=== PATIENT | male | born 1965 | race American Indian/Alaskan Native ===

== ENCOUNTER 2021-02-14 08:42 | Emergency (ER) | payer SELFPAY ==
[2021-02-14] MEDS ORDERED: ASPIRIN 325 MG TAB PO ONE (09:17)
--- NOTE | 2021-02-14 09:59 | XRay Report ---
CHEST 2 VIEWS 0935 INDICATION / CLINICAL INFORMATION: syncope COMPARISON: None available. FINDINGS: SUPPORT DEVICES: None. HEART / MEDIASTINUM: No significant abnormality. LUNGS / PLEURA: Mild chronic changes are noted. Patchy pneumonic type infiltrate is seen moderately i n the left upper lobe. Right lung field is clear. No pleural effusions are seen. No pneumothorax. ADDITIONAL FINDINGS: No significant additional findings. Signer Name: Toby Francois MD Signed: 02/14/2021 9:55 AM Workstation Name: [id number]
[2021-02-14 10:37] LABS: Alanine Aminotransferase 13 units/L (7-56); Albumin 4.2 g/dL (3.9-5); BUN/Creatinine Ratio 17; Blood Urea Nitrogen 22 mg/dL (9-20); Calcium 9.2 mg/dL (8.4-10.2); Hemolysis Index 12
[2021-02-14 10:45] LABS: Hematocrit 43.9 % (35.5-45.6); Hemoglobin 14.7 gm/dl (11.8-15.2); Mean Corpuscular HGB Conc 33 % (32-34); Mean Corpuscular Volume 97 fl (84-94); Platelet Count 185 K/mm3 (140-440); Red Blood Count 4.55 M/mm3 (3.65-5.03); Red Cell Distribution Width 14.4 % (13.2-15.2)
[2021-02-14 11:39] LABS: Total Cells Counted 100
[2021-02-14 11:40] LABS: Large Platelets Few; Platelet Estimate Consistent w Auto; RBC Morphology Normal
[2021-02-14 16:35] VITALS: BP 127/93
--- NOTE | 2021-02-14 17:26 | Electrocardiograph Report ---
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
--- NOTE | 2021-02-15 08:49 | History and Physical Report ---
History of Present Illness Date of examination: 02/15/21 History of present illness: The patient is a 55-year-old male present with a chief complaint of syncope. The patient states he has had 3 syncopal episodes and one near syncopal episode for the past 3 days. Patient states his first episode occurred 02/13/2021 while walking to the bathroom he states he felt dizzy, had chest pain with palpitations and then woke up on the floor. Patient states the following day the same thing occurred while walking to the bathroom. The third episode occurred yesterday morning the patient states he had stepped up onto a bus and was about to pay when he felt dizzy and woke up on the ground surrounded by paramedics. It appears the patient came to the hospital had labs and x-ray performed the left before being evaluated by physician. Patient states last night he began to feel lightheaded so he sat down and the feeling resolved. Patient denies shortness of breath or cough. Patient denies history of fever. Patient denies nausea vomiting or diarrhea. Patient states he was not vaccinated against Covid. Patient states he is never had a cardiac catheterization Past medical history: Hypertension, bipolar disorder Past surgical history: History of wrist surgery and status post trach Family History: No significant history of heart disease, cancer or stroke Social History: Current Every Day Smoker (1 pack/day) Review of System: Constitutional: no fever, no chills, no weight loss Ears, eyes, nose, mouth and throat: no nasal congestion, no nasal discharge, no sinus pressure, no vision change, no red eye. Neck: No neck pain or rigidity. Cardiovascular: No chest pain, no orthopnea, no palpitations, no leg swelling Respiratory: No shortness of breath, no cough, no congestion, no wheezing Gastrointestinal: no abdominal pain, no nausea, no vomiting Genitourinary : no dysuria, no hematuria Musculoskeletal: no joint swelling or muscle ache Integumentary: no rash, no pruritis Neurological: no parathesias, no numbness, no tingling Endocrine: no cold or heat intolerance, no polyuria or polydipsia Hematologic/Lymphatic: no easy bruising, no easy bleeding, no gland swelling Allergic/Immunologic: no urticaria, no angioedema. Medications and Allergies Allergies Allergy/AdvReac Type Severity Reaction Status Date / Time No Known Allergies Allergy Verified 02/14/21 09:17 Active Meds: Active Medications Acetaminophen (Acetaminophen 325 Mg Tab) 650 mg PO Q4H PRN PRN Reason: Pain MILD(1-3)/Fever >100.5/LEIGH Docusate Sodium (Docusate Sodium 100 Mg Cap) 100 mg PO BID MELISSA Famotidine (Famotidine 20 Mg Tab) 20 mg PO BID MELISSA Ondansetron HCl (Ondansetron 4 Mg/2 Ml Inj) 4 mg IV Q8H PRN PRN Reason: Nausea And Vomiting Sodium Chloride (Sodium Chloride 0.9% 10 Ml Flush Syringe) 10 ml IV BID MELISSA Sodium Chloride (Sodium Chloride 0.9% 10 Ml Flush Syringe) 10 ml IV PRN PRN PRN Reason: LINE FLUSH Exam - Constitutional Vitals: Temp Pulse Resp BP Pulse Ox 97.9 F 85 18 127/93 98 02/14/21 16:34 02/14/21 16:34 02/14/21 16:34 02/14/21 16:34 02/14/21 16:34 HEART Score - HEART Score Troponin: Troponin T < 0.010 ng/mL (0.00-0.029) 02/14/21 09:37 Results - Labs CBC & Chem 7: 02/14/21 09:37 02/14/21 09:37 Labs: Abnormal lab results 02/14/21 02/14/21 Range/Units 09:37 09:37 WBC 3.8 L (4.5-11.0) K/mm3 MCV 97 H (84-94) fl Monocytes % (Manual) 16.0 H (0.0-7.3) % Lymphocytes # (Manual) 0.7 L (1.2-5.4) K/mm3 Sodium 134 L (137-145) mmol/L BUN 22 H (9-20) mg/dL Glucose 109 H (75-100) mg/dL Assessment and Plan Recurrent syncope Ongoing tobacco abuse Hypertension Bipolar disorder
[2021-02-15] MEDS ORDERED: ONDANSETRON 4 MG/2 ML INJ IV PRN (09:30)
[2021-02-15] MEDS ORDERED: DOCUSATE SODIUM 100 MG CAP PO SCH (10:00)
[2021-02-15] MEDS ORDERED: ACETAMINOPHEN 325 MG TAB PO PRN (10:30)
[2021-02-15] MEDS ORDERED: FAMOTIDINE 20 MG TAB PO SCH (11:00)
== END 2021-02-15 12:27 | disposition left against medical advice (07) ==
LOC: ED 08:42
DX: R55 Syncope and collapse (principal); Z53.21 Procedure and treatment not carried out due to patient leaving prior to being seen by health care provider
CPT/HCPCS: 36415; 71046; 80053; 84484; 85007; 85025; 93005

== ENCOUNTER 2021-02-15 00:09 | Inpatient (IN) | payer SELFPAY ==
[2021-02-15] MEDS ORDERED: ONDANSETRON 4 MG ODT TAB PO ONE (01:27)
[2021-02-15] MEDS ORDERED: ACETAMINOPHEN 500 MG TAB PO ONE (01:27)
[2021-02-15 02:19] LABS: Mean Corpuscular HGB Conc 36 % (32-34); Mean Corpuscular Volume 95 fl (84-94); Platelet Count 182 K/mm3 (140-440); Red Blood Count 4.41 M/mm3 (3.65-5.03)
[2021-02-15 02:21] LABS: Alanine Aminotransferase 13 units/L (7-56); Albumin 4.4 g/dL (3.9-5); BUN/Creatinine Ratio 19; Blood Urea Nitrogen 23 mg/dL (9-20); Calcium 8.9 mg/dL (8.4-10.2); Hemolysis Index 8
[2021-02-15] MEDS ORDERED: AZITHROMYCIN/NS 500 MG/250 ML 500 MG/250 ML BAG IV ONE (04:32)
[2021-02-15] MEDS ORDERED: cefTRIAXone/NS 1 GM/50 ML 1 GM/50 ML BAG IV ONE (04:32)
--- NOTE | 2021-02-15 04:41 | Emergency Department Report ---
HPI - HPI HPI: Room 39 --> 34 The patient is a 55-year-old male present with a chief complaint of syncope. The patient states he has had 3 syncopal episodes and one near syncopal episode for the past 3 days. Patient states his first episode occurred 02/13/2021 while walking to the bathroom he states he felt dizzy, had chest pain with palpitations and then woke up on the floor. Patient states the following day th e same thing occurred while walking to the bathroom. The third episode occurred yesterday morning the patient states he had stepped up onto a bus and was about to pay when he felt dizzy and woke up on the ground surrounded by paramedics. It appears the patient came to the hospital had labs and x-ray performed the left before being evaluated by physician. Patient states last night he began to feel lightheaded so he sat down and the feeling resolved. Patient denies shortness of breath or cough. Patient denies history of fever. Patient denies nausea vomiting or diarrhea. Patient states he was not vaccinated against Covid. Patient states he is never had a cardiac catheterization <JODY SWANN - Last Filed: 02/15/21 05:42> <CINTHYA FERRARI - Last Filed: 02/15/21 08:28> - General Chief Complaint: Syncope Time Seen by Provider: 02/15/21 04:18 ED Past Medical Hx - Past Medical History Previous Medical History?: Yes Hx Hypertension: Yes Hx Psychiatric Treatment: Yes (Bipolar) - Surgical History Past Surgical History?: Yes Additional Surgical History: Wrist,trach - Family History Family history: no significant - Social History Smoking Status: Current Every Day Smoker (1 pack/day) Substance Use Type: None (Denies illicit drug use) <JODY SWANN - Last Filed: 02/15/21 05:42> ED Review of Systems ROS: Stated complaint: PASSED OUT Other details as noted in HPI Constitutional: denies: fever Eyes: denies: eye pain ENT: denies: throat pain Respiratory: orthopnea. denies: cough, shortness of breath Cardiovascular: chest pain, palpitations Endocrine: no symptoms reported Gastrointestinal: denies: nausea, vomiting, diarrhea Genitourinary: denies: dysuria Musculoskeletal: denies: back pain Neurological: other (Lightheadedness). denies: headache <JODY SWANN - Last Filed: 02/15/21 05:42> ROS: Stated complaint: PASSED OUT Other details as noted in HPI <CINTHYA FERRARI - Last Filed: 02/15/21 08:28> Physical Exam - Physical Exam Vital Signs: Vital Signs 02/15/21 01:26 Temperature 100.0 F H Pulse Rate 102 H Respiratory 20 Rate Blood Pressure 110/73 O2 Sat by Pulse 98 Oximetry Physical Exam: GENERAL: The patient is well-developed well-nourished male lying on stretcher not appearing to be in acute distress. [] HEENT: Normocephalic. Atraumatic. Extraocular motions are intact. Patient has moist mucous membranes. NECK: Supple. Trachea midline CHEST/LUNGS: Clear to auscultation. There is no respiratory distress noted. HEART/CARDIOVASCULAR: Regular. There is tachycardia. There is no gallop rub or murmur. ABDOMEN: Abdomen is soft, nontender. Patient has normal bowel sounds. There is no abdominal distention. SKIN: There is no rash. There is no edema. There is no diaphoresis. NEURO: The patient is awake, alert, and oriented. The patient is cooperative. The patient has no focal neurologic deficits. The patient has normal speech. GCS 15. Cranial nerves II through XII grossly intact MUSCULOSKELETAL: There is no evidence of acute injury. <JODY SWANN - Last Filed: 02/15/21 05:42> - Physical Exam Vital Signs: Vital Signs 02/15/21 02/15/21 01:26 05:59 Temperature 100.0 F H Pulse Rate 102 H Pulse Rate [ 74 Lying] Pulse Rate [ 84 Sitting] Pulse Rate [ 92 H Standing] Respiratory 20 Rate Blood Pressure 110/73 Blood Pressure 131/89 [Lying] Blood Pressure 118/79 [Sitting] Blood Pressure 126/85 [Standing] O2 Sat by Pulse 98 Oximetry <CINTHYA FERRARI - Last Filed: 02/15/21 08:28> ED Course Vital Signs 02/15/21 01:26 Temperature 100.0 F H Pulse Rate 102 H Respiratory 20 Rate Blood Pressure 110/73 O2 Sat by Pulse 98 Oximetry <JODY SWANN - Last Filed: 02/15/21 05:42> Vital Signs 02/15/21 02/15/21 01:26 05:59 Temperature 100.0 F H Pulse Rate 102 H Pulse Rate [ 74 Lying] Pulse Rate [ 84 Sitting] Pulse Rate [ 92 H Standing] Respiratory 20 Rate Blood Pressure 110/73 Blood Pressure 131/89 [Lying] Blood Pressure 118/79 [Sitting] Blood Pressure 126/85 [Standing] O2 Sat by Pulse 98 Oximetry <CINTHYA FERRARI - Last Filed: 02/15/21 08:28> ED Medical Decision Making - Lab Data Result diagrams: 02/15/21 01:28 02/15/21 01:28 - EKG Data -: EKG Interpreted by Wi EKG shows normal: sinus rhythm Rate: normal - EKG Data When compared to previous EKG there are: previous EKG unavailable Interpretation: nonspecific ST-T wave shakir (T wave inversion lead aVL) - Radiology Data Radiology results: report reviewed (Chest x-ray from 02/14/2021 09:18), image reviewed (Chest x-ray from 02/14/2021 09:18) - Differential Diagnosis Syncope, dysrhythmia, COVID-19, PE, ACS <JODY SWANN - Last Filed: 02/15/21 05:42> - Lab Data Result diagrams: 02/15/21 01:28 02/15/21 01:28 <CINTHYA FERRARI - Last Filed: 02/15/21 08:28> Critical care attestation.: If time is entered above; I have spent that time in minutes in the direct care of this critically ill patient, excluding procedure time. <JODY SWANN - Last Filed: 02/15/21 05:42> Critical care attestation.: If time is entered above; I have spent that time in minutes in the direct care of this critically ill patient, excluding procedure time. <CINTHYA FERRARI - Last Filed: 02/15/21 08:28> ED Disposition Is pt being admited?: Yes Does the pt Need Aspirin: Yes <JODY SWANN - Last Filed: 02/15/21 05:42> Is pt being admited?: Yes Does the pt Need Aspirin: Yes <CINTHYA FERRARI - Last Filed: 02/15/21 08:28> Clinical Impression: Syncope and collapse Disposition: 09 ADMITTED INPATIENT Condition: Fair Instructions: Nonspecific Chest Pain, Adult, Syncope (ED) Heart Score - HEART Score History: Slightly suspicious EKG: Non-specific Age: 45-65 Risk factors: 1-2 risk factors Troponin: < normal limit HEART Score: 3 - EKG Read Time Time EKG Completed: 05:25 EKG Read Time: 05:39 <JODY SWANN - Last Filed: 02/15/21 05:42>
[2021-02-15 04:42] LABS: Band Neutrophils # (Manual) 0.1 K/mm3; Total Cells Counted 100
[2021-02-15 04:43] LABS: Anisocytosis 1+; Platelet Estimate Consistent w Auto
[2021-02-15] MEDS ORDERED: ASPIRIN 325 MG TAB PO ONE (05:44)
[2021-02-15 05:48] LABS: Free T4 (Free Thyroxine) 1.1 ng/dL (0.76-1.46)
--- NOTE | 2021-02-15 06:01 | Cat Scan Report ---
CTA CHEST WITH IV CONTRAST INDICATION: Acute onset chest pain with dyspnea TECHNIQUE: Axial CT images were obtained through the chest after injection of 100 mL IV contrast. 3 plane MIP re constructions were produced. All CT scans at this location are performed using CT dose reduction for ALARA by means of automated exposure control. COMPARISON: None available. FINDINGS: PULMONARY ARTERIES: No pulmonary emboli. AORTA AND ARTERIES: No acute abnormality. MEDIASTINUM: No mass, lymphadenopathy or other significant abnormality. The heart is normal in size w ithout a pericardial effusion. The trachea and main bronchi are patent and normal in caliber. LUNGS: Emphysema. Severe left upper lobe airspace pneumonia. ADDITIONAL FINDINGS: None. UPPER ABDOMEN: No acute findings. BONES: No significant osseous abnormality. IMPRESSION: 1. No CT evidence for pulmonary embolism. 2. Emphysema with left upper lobe pneumonia. Signer Name: González Daniels MD Signed: 02/15/2021 5:56 AM Workstation Name: [id number]
--- NOTE | 2021-02-15 06:02 | Cat Scan Report ---
CT head without contrast INDICATION : Syncope. Headache. Altered mental status. TECHNIQUE: Axial imaging performed from the skull apex through the skull base without the use of con trast. All CT examinations performed at this facility utilize dose modulation, iterative reconstruct ion or weight-based dosing, when appropriate, to reduce radiation dose to as low as reasonably achiev able. COMPARISON: None FINDINGS: No acute intracranial hemorrhage or parenchymal abnormality. Ventricles are normal in si ze and appear symmetric. Soft tissues including the orbits appear normal. No acute osseous abnorm ality. Sinuses and mastoid air cells are clear. IMPRESSION: No acute abnormality. Signer Name: González Daniels MD Signed: 02/15/2021 5:58 AM Workstation Name: [id number]
--- NOTE | 2021-02-15 08:21 | History and Physical Report ---
History of Present Illness Date of examination: 02/15/21 Chief complaint: syncope History of present illness: The patient is a 55-year-old male present with a chief complaint of syncope. The patient states he has had 3 syncopal episodes and one near syncopal episode for the past 3 days. Patient states his first episode occurred 02/13/2021 while walking to the bathroom he states he felt dizzy, had chest pain with palpitations and then woke up on the floor. Patient states the following day the same thing occurred while walking to the bathroom. The third episode occurred yesterday morning the patient states he had stepped up onto a bus and was about to pay when he felt dizzy and woke up on the ground surrounded by paramedics. It appears the patient came to the hospital had labs and x-ray performed the left before being evaluated by physician. Patient states last night he began to feel lightheaded so he sat down and the feeling resolved. Patient denies shortness of breath or cough. Patient denies history of fever. Patient denies nausea vomiting or diarrhea. Patient states he was not vaccinated against Covid. Patient states he is never had a cardiac catheterization Past medical history: Hypertension, bipolar disorder Past surgical history: History of wrist surgery and status post trach Family History: No significant history of heart disease, cancer or stroke Social History: Current Every Day Smoker (1 pack/day) Review of System: Constitutional: no fever, no chills, no weight loss Ears, eyes, nose, mouth and throat: no nasal congestion, no nasal discharge, no sinus pressure, no vision change, no red eye. Neck: No neck pain or rigidity. Cardiovascular: No chest pain, no orthopnea, no palpitations, no leg swelling Respiratory: No shortness of breath, no cough, no congestion, no wheezing Gastrointestinal: no abdominal pain, no nausea, no vomiting Genitourinary : no dysuria, no hematuria Musculoskeletal: no joint swelling or muscle ache Integumentary: no rash, no pruritis Neurological: no parathesias, no numbness, no tingling Endocrine: no cold or heat intolerance, no polyuria or polydipsia Hematologic/Lymphatic: no easy bruising, no easy bleeding, no gland swelling Allergic/Immunologic: no urticaria, no angioedema. Medications and Allergies Allergies Allergy/AdvReac Type Severity Reaction Status Date / Time No Known Allergies Allergy Verified 02/14/21 09:17 Exam - Physical Exam Narrative exam: Limited physical exam due to COVID-19 pandemic to minimize transmission of the disease and to preserve PPE. Vital reviewed and stable. GENERAL: well-developed well-nourished male lying on bed appeared to be in no discomfort. HEENT: Normocephalic. Atraumatic. NECK: Supple. CHEST/LUNGS: breathing nonlabored. HEART/CARDIOVASCULAR: Heart rate stable on telemetry ABDOMEN: Visibly not distended SKIN: There is no rash NEURO: No focal motor deficit. Follows command. MUSCULOSKELETAL: No joint effusion EXTRIMITY: No swelling, no cyanosis or clubbing. PSYCH: Cooperative. - Constitutional Vitals: Temp Pulse Resp BP Pulse Ox 100.0 F H 74 20 131/89 98 02/15/21 01:26 02/15/21 05:59 02/15/21 01:26 02/15/21 05:59 02/15/21 01:26 HEART Score - HEART Score EKG: Non-specific Age: 45-65 Risk factors: 1-2 risk factors Troponin: Troponin T < 0.010 ng/mL (0.00-0.029) 02/15/21 04:44 Troponin: < normal limit Results - Labs CBC & Chem 7: 02/15/21 01:28 02/18/21 03:12 Labs: Abnormal lab results 02/15/21 02/15/21 Range/Units 01:28 01:28 WBC 2.7 L (4.5-11.0) K/mm3 MCV 95 H (84-94) fl MCH 34 H (28-32) pg MCHC 36 H (32-34) % Monocytes % (Manual) 11.0 H (0.0-7.3) % Lymphocytes # (Manual) 0.6 L (1.2-5.4) K/mm3 Sodium 135 L (137-145) mmol/L Chloride 97.0 L (98-107) mmol/L BUN 23 H (9-20) mg/dL Glucose 105 H (75-100) mg/dL Assessment and Plan --Recurrent syncope -Likely vasovagal, CT head without any acute process -Continue to follow clinically, frequent neuro eval -order 2d echo, orthostatic vitals - cardiology consulted --COVID PNA -Patient tested positive for COVID-19 virus -S/p dexamethasone, azithromycin and Rocephin in the ED -Placed on dexamethasone for total 10 days and remdesivir total 5 days -Infectious disease consulted, appreciate recommendations -Droplet/contact isolation -Continue SPO2 monitoring -Supplemental oxygen as needed -Pulmonary hygiene -Prone to sleep -Vitamin C, vitamin D, zinc -Anticoagulation per protocol -Lasix IV as needed to prevent pulmonary edema --Acute hypoxic respiratory failure -Due to COVID-19 pneumonia, continue Covid protocol, supplemental O2 to keep O2 sat 94% --Bipolar disorder, continue home medicine --HTN, follow BP, hydralazine iv as needed --DVT Px, lovenox
[2021-02-15] MEDS ORDERED: ALBUTEROL 8.5 GM MDI INHALATION IH PRN (10:00)
[2021-02-15] MEDS ORDERED: ONDANSETRON 4 MG/2 ML INJ IV PRN (15:00)
--- NOTE | 2021-02-15 15:02 | Vascular Lab Report ---
DUPLEX DOPPLER ULTRASOUND CAROTID, BILATERAL INDICATION / CLINICAL INFORMATION: syncope. COMPARISON: None available. FINDINGS: RIGHT CAROTID: - PLAQUE ESTIMATE (%): < 50% - CCA velocity: 58.8 cm/sec. - ICA peak systolic velocity: 69.8 cm/sec. - ICA/CCA PSV Ratio: 1.2 Right Vertebral Artery: Antegrade flow. LEFT CAROTID: - PLAQUE ESTIMATE: < 50% - CCA velocity: 60.7 cm/sec. - ICA peak systolic velocity: 89.1 cm/sec. - ICA/CCA PSV Ratio: 1.5 Left Vertebral Artery: Antegrade flow. IMPRESSION: 1. Right Internal Carotid Artery: Less than 50% diameter stenosis. 2. Left Internal Carotid Artery: Less than 50% diameter stenosis. Velocity criteria are extrapolated from diameter data as defined by the Society of Radiologists in Ul trasound Consensus Conference, Radiology 2003; 229;340-346. NO STENOSIS (NORMAL) * Plaque = none; ICA PSV < 125 cm/sec; ICA/CCA PSV Ratio < 2.0 <50% STENOSIS * Plaque < 50%; ICA PSV < 125 cm/sec; ICA/CCA PSV Ratio < 2.0 50-69% STENOSIS * Plaque > 50%; ICA PSV = 125-230 cm/sec; ICA/CCA PSV Ratio = 2.0-4.0 >70% BUT <100% STENOSIS * Plaque > 50%; ICA PSV > 230 cm/sec; ICA/CCA PSV Ratio > 4.0 NEAR OCCLUSION * Plaque = visible lumen; ICA PSV = high/low/none; ICA/CCA PSV Ratio = variable TOTAL OCCLUSION * Plaque = no lumen; ICA PSV = none; ICA/CCA PSV Ratio = N/A Signer Name: Miguel Garibay MD Signed: 02/15/2021 2:58 PM Workstation Name: [id number]
[2021-02-15 16:58] LABS: C-Reactive Protein 1.6 mg/dL (0.00-1.30)
[2021-02-15] MEDS: DEXAMETHASONE 4 MG TAB PO SCH (18:31)
[2021-02-15] MEDS: DOCUSATE SODIUM 100 MG CAP PO SCH (23:35)
[2021-02-15] MEDS: FAMOTIDINE 20 MG TAB PO SCH (23:35)
[2021-02-15] MEDS: ACETAMINOPHEN 325 MG TAB PO PRN (23:37)
[2021-02-16] MEDS: DEXAMETHASONE 4 MG TAB PO SCH (09:45)
[2021-02-16] MEDS: DOCUSATE SODIUM 100 MG CAP PO SCH (09:53)
[2021-02-16] MEDS: FAMOTIDINE 20 MG TAB PO SCH (09:54)
--- NOTE | 2021-02-16 09:54 | Electrocardiograph Report ---
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
--- NOTE | 2021-02-16 14:22 | Consultation ---
History of Present Illness Consult date: 02/16/21 Consult reason: syncope History of present illness: Patient is a 55-year old M with a history of hypertension, admitted with dizziness, diaphoresis, fever, and recurrent syncope. CTA of the chest reports no evidence of PE but emphysema with left pneumonia. Serology test is positive for COVID 19 infection. Syncope was reported intermittent for 3 days. There were no report of chest pain, unusual shortness of breath or palpitations. Troponin levels were normal. An ECG is normal sinus rhythm. No acute ischemic changes. No prior cardiac history. Cardiology consultation has been requested for evaluation of syncope. Past History Past Medical History: hypertension Medications and Allergies Allergies Allergy/AdvReac Type Severity Reaction Status Date / Time No Known Allergies Allergy Verified 02/14/21 09:17 Active Meds: Active Medications Acetaminophen (Acetaminophen 325 Mg Tab) 650 mg PO Q4H PRN PRN Reason: Pain MILD(1-3)/Fever >100.5/LEIGH Last Admin: 02/15/21 23:37 Dose: 650 mg Documented by: Albuterol (Albuterol 8.5 Gm Mdi Inhalation) 2 puff IH Q4HRT PRN PRN Reason: Shortness Of Breath Last Admin: 02/15/21 23:38 Dose: 1 1000units Documented by: Dexamethasone (Dexamethasone 4 Mg Tab) 6 mg PO Q24HR [facility] Last Admin: 02/16/21 09:45 Dose: 6 mg Documented by: Docusate Sodium (Docusate Sodium 100 Mg Cap) 100 mg PO BID [facility] Last Admin: 02/16/21 09:53 Dose: 100 mg Documented by: Famotidine (Famotidine 20 Mg Tab) 20 mg PO BID [facility] Last Admin: 02/16/21 09:54 Dose: 20 mg Documented by: Ondansetron HCl (Ondansetron 4 Mg/2 Ml Inj) 4 mg IV Q8H PRN PRN Reason: Nausea And Vomiting Sodium Chloride (Sodium Chloride 0.9% 10 Ml Flush Syringe) 10 ml IV BID [facility] Last Admin: 02/16/21 10:00 Dose: 10 ml Documented by: Sodium Chloride (Sodium Chloride 0.9% 10 Ml Flush Syringe) 10 ml IV PRN PRN PRN Reason: LINE FLUSH Physical Examination Vital Signs Temp Pulse Resp BP Pulse Ox 100.0 F H 102 H 20 110/73 98 02/15/21 01:26 08/23/21 01:26 02/15/21 01:26 02/15/21 01:26 02/15/21 01:26 Narrative exam: Deferred due to isolation protocol. General appearance: no acute distress Cardiac: Positive: Reg Rate and Rhythm Results 02/15/21 01:28 02/15/21 01:28 Cardiac Enzymes 02/15/21 Range/Units 15:52 Lactate Dehydrogenase 269 H (91-180) units/L Assessment and Plan - Patient Problems (1) Syncope and collapse Current Visit: Yes Status: Acute Plan to address problem: Chest x-ray shows left pneumonia, and serology test is positive for COVID 19 infection.
--- NOTE | 2021-02-16 16:08 | Consultation ---
History of Present Illness - Reason for Consult Consult date: 02/16/21 COVID PNA Requesting physician: TYRONE BRASHER - History of Present Illness The patient is a 55-year-old male with hypertension, bipolar disorder admitted with syncope. ID consulted because patient is Covid positive. Fever of 101.7 F. Labs showed leukopenia, D-dimer 267, LDH 269, CRP 1.6, ferritin 190. CT chest negative for PE, shows emphysema with left upper lobe pneumonia Review of Systems: reviewed in the chart, unable to obtain, minimize risk of transmission Past History Past Medical History: hypertension Medications and Allergies Allergies Allergy/AdvReac Type Severity Reaction Status Date / Time No Known Allergies Allergy Verified 02/14/21 09:17 Active Meds: Active Medications Acetaminophen (Acetaminophen 325 Mg Tab) 650 mg PO Q4H PRN PRN Reason: Pain MILD(1-3)/Fever >100.5/LEIGH Last Admin: 02/15/21 23:37 Dose: 650 mg Documented by: Albuterol (Albuterol 8.5 Gm Mdi Inhalation) 2 puff IH Q4HRT PRN PRN Reason: Shortness Of Breath Last Admin: 02/15/21 23:38 Dose: 1 1000units Documented by: Dexamethasone (Dexamethasone 4 Mg Tab) 6 mg PO Q24HR [facility] Last Admin: 02/16/21 09:45 Dose: 6 mg Documented by: Docusate Sodium (Docusate Sodium 100 Mg Cap) 100 mg PO BID [facility] Last Admin: 02/16/21 09:53 Dose: 100 mg Documented by: Famotidine (Famotidine 20 Mg Tab) 20 mg PO BID [facility] Last Admin: 02/16/21 09:54 Dose: 20 mg Documented by: REMDESIVIR 200 mg/ Sodium (Chloride) 250 mls @ 500 mls/hr IV ONCE ONE Stop: 02/16/21 16:36 REMDESIVIR 100 mg/ Sodium (Chloride) 250 mls @ 500 mls/hr IV Q24HR@2100 [facility] Stop: 02/20/21 21:29 Ondansetron HCl (Ondansetron 4 Mg/2 Ml Inj) 4 mg IV Q8H PRN PRN Reason: Nausea And Vomiting Sodium Chloride (Sodium Chloride 0.9% 10 Ml Flush Syringe) 10 ml IV BID [facility] Last Admin: 02/16/21 10:00 Dose: 10 ml Documented by: Sodium Chloride (Sodium Chloride 0.9% 10 Ml Flush Syringe) 10 ml IV PRN PRN PRN Reason: LINE FLUSH Sodium Chloride (Sodium Chloride 0.9% 50 Ml Ivpb) 50 ml IV Q24HR@2100 MELISSA Stop: 02/20/21 21:01 Physical Examination - Physical Exam Narrative exam: Physical Exam (reviewed in chart to minimize risk of transmission) Constitutional: deferred Head, Ears, Nose: deferred Eyes: deferred Neck: deferred Oral: deferred Cardiovascular: deferred Respiratory: deferred GI: deferred Musculoskeletal: deferred Skin: deferred Hem/Lymphatic: deferred Psych: deferred Neurological: deferred - Constitutional Vitals: Vital Signs Temp Pulse Resp BP Pulse Ox 101.7 F H 68 22 124/88 96 02/15/21 19:57 02/16/21 06:38 02/16/21 06:38 02/15/21 19:57 02/16/21 06:38 Temperature -Last 24 Hours Temperature 101.7 F Results - Labs CBC & Chem 7: 02/15/21 01:28 02/15/21 01:28 Labs: Abnormal lab results 02/15/21 02/15/21 Range/Units 15:52 15:52 D-Dimer 267.96 H (0-234) ng/mlDDU Lactate Dehydrogenase 269 H (91-180) units/L C-Reactive Protein 1.60 H (0.00-1.30) mg/dL - Imaging and Cardiology Chest x-ray: report reviewed Assessment and Plan Cultures: SARS CoV2 PCR: Positive 02/15/2021 blood culture: No growth A/P: 55-year-old male with hypertension, bipolar disorder admitted with syncope: #COVID-19 pneumonia #Leukopenia #Syncope: Cardiology following Recs: IV/PO Dexamethasone 6 mg daily x 10 days IV remdesivir ordered Follow-up procalcitonin prophylactic anticoagulation based on d-dimer per hospital protocol trend ferritin, LDH, d-dimer, CRP every 2-3 days for risk stratification and to assess disease progression Ambulatory sats in formerly [facility] Christy Marrero MD, FACP [facility] ([facility] O: [phone] F: [phone]
--- NOTE | 2021-02-16 16:30 | Progress Note ---
Assessment and Plan --Recurrent syncope -Likely vasovagal, CT head without any acute process -Continue to follow clinically, frequent neuro eval -Pending orthostatic vitals --COVID PNA -Patient tested positive for COVID-19 virus -CXR shows patchy parenchymal disease which represent pulmonary edema or atypical pneumonia -S/p dexamethasone, azithromycin and Rocephin in the ED -Placed on dexamethasone for total 10 days and remdesivir total 5 days -No need for antibiotic as procalcitonin level is normal -Infectious disease consulted, appreciate recommendations -Droplet/contact isolation -Continue SPO2 monitoring -Supplemental oxygen as needed -Pulmonary hygiene -Prone to sleep -Vitamin C, vitamin D, zinc -Anticoagulation per protocol -Lasix IV as needed to prevent pulmonary edema --Acute hypoxic respiratory failure -Due to COVID-19 pneumonia, continue Covid protocol, supplemental O2 to keep O2 sat 94% --Bipolar disorder, continue home medicine --HTN, follow BP, hydralazine iv as needed --DVT Px, lovenox Daily clinical course: 02/16/21: Continue supplemental O2, follow inflammatory markers, continue Dex and remdesivir. Monitor blood glucose and SSI as needed. Check for orthostatic vitals, follow 2D echo. Subjective Date of service: 02/16/21 Interval history: Patient seen and examined. Medical records and medication list reviewed. No acute event overnight noted by the RN. Patient c/o dizziness. Patient is tolerating diet. Discussed plan of care at bedside with patient. Objective - Exam Narrative Exam: Limited physical exam due to COVID-19 pandemic to minimize transmission of the disease and to preserve PPE. Vital reviewed and stable. GENERAL: well-developed well-nourished male lying on bed appeared to be in no discomfort. HEENT: Normocephalic. Atraumatic. NECK: Supple. CHEST/LUNGS: breathing nonlabored. HEART/CARDIOVASCULAR: Heart rate stable on telemetry ABDOMEN: Visibly not distended SKIN: There is no rash NEURO: No focal motor deficit. Follows command. MUSCULOSKELETAL: No joint effusion EXTRIMITY: No swelling, no cyanosis or clubbing. PSYCH: Cooperative. - Constitutional Vitals: Vital Signs - 12hr 02/16/21 06:38 Pulse Rate 68 Respiratory 22 Rate O2 Sat by Pulse 96 Oximetry - Labs CBC & Chem 7: 02/15/21 01:28 02/18/21 03:12 Labs: Abnormal lab results 02/15/21 02/15/21 Range/Units 15:52 15:52 D-Dimer 267.96 H (0-234) ng/mlDDU Lactate Dehydrogenase 269 H (91-180) units/L C-Reactive Protein 1.60 H (0.00-1.30) mg/dL HEART Score - HEART Score EKG: Non-specific Age: 45-65 Risk factors: 1-2 risk factors Troponin: Troponin T < 0.010 ng/mL (0.00-0.029) 02/15/21 04:44 Troponin: < normal limit
[2021-02-16 17:06] LABS: Alanine Aminotransferase 11 units/L (7-56); Albumin 3.8 g/dL (3.9-5); BUN/Creatinine Ratio 23; Blood Urea Nitrogen 21 mg/dL (9-20); Calcium 9.4 mg/dL (8.4-10.2); Hemolysis Index 1
[2021-02-16] MEDS ORDERED: REMDESIVIR 200 MG in SODIUM CHLORIDE 0.9% 250ML 250 ML IV ONE (18:00)
[2021-02-16] MEDS: SODIUM CHLORIDE 0.9% 50 ML IVPB IV SCH (21:00)
[2021-02-17] MEDS: ACETAMINOPHEN 325 MG TAB PO PRN ×2 (02:24→18:55)
[2021-02-17] MEDS: SODIUM CHLORIDE 0.9% 50 ML IVPB IV SCH ×2 (02:29→21:39)
[2021-02-17] MEDS: FAMOTIDINE 20 MG TAB PO SCH ×3 (02:30→21:40)
[2021-02-17] MEDS: DOCUSATE SODIUM 100 MG CAP PO SCH ×3 (02:30→21:40)
[2021-02-17 06:39] LABS: Alanine Aminotransferase 10 units/L (7-56); Albumin 3.7 g/dL (3.9-5); BUN/Creatinine Ratio 23; Blood Urea Nitrogen 21 mg/dL (9-20); Calcium 9.3 mg/dL (8.4-10.2); Hemolysis Index 13
[2021-02-17 11:33] LABS: C-Reactive Protein 0.7 mg/dL (0.00-1.30)
[2021-02-17] MEDS: SODIUM CHLORIDE 0.9% 1000 ML 1,000 ML IV SCH (13:55)
--- NOTE | 2021-02-17 14:19 | Progress Note ---
Assessment and Plan --Recurrent syncope -Likely vasovagal, CT head without any acute process -Continue to follow clinically, frequent neuro eval -Pending orthostatic vitals --COVID PNA -Patient tested positive for COVID-19 virus -CXR shows patchy parenchymal disease which represent pulmonary edema or atypical pneumonia -S/p dexamethasone, azithromycin and Rocephin in the ED -Placed on dexamethasone for total 10 days and remdesivir total 5 days -No need for antibiotic as procalcitonin level is normal -Infectious disease consulted, appreciate recommendations -Droplet/contact isolation -Continue SPO2 monitoring -Supplemental oxygen as needed -Pulmonary hygiene -Prone to sleep -Vitamin C, vitamin D, zinc -Anticoagulation per protocol -Lasix IV as needed to prevent pulmonary edema --Acute hypoxic respiratory failure -Due to COVID-19 pneumonia, continue Covid protocol, supplemental O2 to keep O2 sat 94% --Bipolar disorder, continue home medicine --Orthostatic hypotension, gentle iv fluid --HTN, follow BP, hydralazine iv as needed --DVT Px, lovenox Daily clinical course: 02/16/21: Continue supplemental O2, follow inflammatory markers, continue Dex and remdesivir. Monitor blood glucose and SSI as needed. Check for orthostatic vitals, follow 2D echo. 02/17/21: Patient resting on room air but noted to be significantly orthostatic. Start on gentle IV fluid hydration. Continue to follow orthostatic vitals. O rder PT eval, possible discharge when vital is stable Subjective Date of service: 02/17/21 Interval history: Patient seen and examined. Medical records and medication list reviewed. No acute event overnight noted by the RN. Patient c/o dizziness. Patient is tolerating diet. Discussed plan of care at bedside with patient. Objective - Exam Narrative Exam: Limited physical exam due to COVID-19 pandemic to minimize transmission of the disease and to preserve PPE. Vital reviewed and stable. GENERAL: well-developed well-nourished male lying on bed appeared to be in no discomfort. HEENT: Normocephalic. Atraumatic. NECK: Supple. CHEST/LUNGS: breathing nonlabored. HEART/CARDIOVASCULAR: Heart rate stable on telemetry ABDOMEN: Visibly not distended SKIN: There is no rash NEURO: No focal motor deficit. Follows command. MUSCULOSKELETAL: No joint effusion EXTRIMITY: No swelling, no cyanosis or clubbing. PSYCH: Cooperative. - Constitutional Vitals: Vital Signs - 12hr 02/17/21 02/17/21 02/17/21 03:30 03:32 11:48 Temperature 98.8 F 99.4 F Pulse Rate 71 84 Respiratory 18 18 Rate Blood Pressure 116/68 135/97 O2 Sat by Pulse 96 96 95 Oximetry - Labs CBC & Chem 7: 02/15/21 01:28 02/18/21 03:12 Labs: Abnormal lab results 02/16/21 02/17/21 02/17/21 Range/Units 16:30 04:17 09:55 D-Dimer 284.26 H (0-234) ng/mlDDU Sodium 133 L 135 L (137-145) mmol/L BUN 21 H 21 H (9-20) mg/dL Glucose 137 H (75-100) mg/dL Lactate Dehydrogenase (91-180) units/L Albumin 3.8 L 3.7 L (3.9-5) g/dL 02/17/21 Range/Units 09:55 D-Dimer (0-234) ng/mlDDU Sodium (137-145) mmol/L BUN (9-20) mg/dL Glucose (75-100) mg/dL Lactate Dehydrogenase 318 H (91-180) units/L Albumin (3.9-5) g/dL HEART Score - HEART Score EKG: Non-specific Age: 45-65 Risk factors: 1-2 risk factors Troponin: Troponin T < 0.010 ng/mL (0.00-0.029) 02/15/21 04:44 Troponin: < normal limit
[2021-02-17] MEDS: DEXAMETHASONE 4 MG TAB PO SCH (18:54)
[2021-02-17] MEDS: REMDESIVIR 100 MG in SODIUM CHLORIDE 0.9% 250ML 250 ML IV SCH (21:39)
[2021-02-18 04:46] LABS: Alanine Aminotransferase 10 units/L (7-56); Albumin 3.5 g/dL (3.9-5); BUN/Creatinine Ratio 20; Blood Urea Nitrogen 16 mg/dL (9-20); Calcium 8.8 mg/dL (8.4-10.2); Hemolysis Index 5
[2021-02-18] MEDS: DEXAMETHASONE 4 MG TAB PO SCH (09:05)
[2021-02-18] MEDS: SODIUM CHLORIDE 0.9% 1000 ML 1,000 ML IV SCH (09:05)
[2021-02-18] MEDS: FAMOTIDINE 20 MG TAB PO SCH ×2 (09:06→22:00)
[2021-02-18] MEDS: DOCUSATE SODIUM 100 MG CAP PO SCH ×2 (09:06→22:00)
--- NOTE | 2021-02-18 09:42 | XRay Report ---
CHEST 1 VIEW 02/18/2021 8:21 AM INDICATION / CLINICAL INFORMATION: pna. COMPARISON: 02/14/2021 FINDINGS: SUPPORT DEVICES: None. HEART / MEDIASTINUM: No significant abnormality. LUNGS / PLEURA: Stable infiltrate right mid/upper zone. No pneumothorax. ADDITIONAL FINDINGS: No significant additional findings. IMPRESSION: 1. No acute findings. Signer Name: Patrick Fair MD Signed: 02/18/2021 9:37 AM Workstation Name: [email or web address]
--- NOTE | 2021-02-18 11:12 | Progress Note ---
Assessment and Plan Assessment and plan: -Recurrent syncope -Likely vasovagal, CT head without any acute process -Continue to follow clinically, frequent neuro eval -Pending orthostatic vitals --COVID PNA -Patient tested positive for COVID-19 virus -CXR shows patchy parenchymal disease which represent pulmonary edema or atypical pneumonia -S/p dexamethasone, azithromycin and Rocephin in the ED -Placed on dexamethasone for total 10 days and remdesivir total 5 days -No need for antibiotic as procalcitonin level is normal -Infectious disease consulted, appreciate recommendations -Droplet/contact isolation -Continue SPO2 monitoring -Supplemental oxygen as needed -Pulmonary hygiene -Prone to sleep -Vitamin C, vitamin D, zinc -Anticoagulation per protocol -Lasix IV as needed to prevent pulmonary edema --Acute hypoxic respiratory failure -Due to COVID-19 pneumonia, continue Covid protocol, supplemental O2 to keep O2 sat 94% --Bipolar disorder, continue home medicine --Orthostatic hypotension, gentle iv fluid --HTN, follow BP, hydralazine iv as needed --DVT Px, lovenox Daily clinical course: 02/16/21: Continue supplemental O2, follow inflammatory markers, continue Dex and remdesivir. Monitor blood glucose and SSI as needed. Check for orthostatic vitals, follow 2D echo. 02/17/21: Patient resting on room air but noted to be significantly orthostatic. Start on gentle IV fluid hydration. Continue to follow orthostatic vitals. Order PT eval, possible discharge when vital is stable 02/18/21 Patient with Covid-19 pneumonia. He presented with syncope. Has orthostatic hypotension. Fever 102.5 yesterday. Started on Remdesivir yesterday 02/17 History Interval history: Fever of 102.5 yesterday Syncope Hospitalist Physical - Physical exam Narrative exam: Gen:Not in acute distress, lying in bed, HEENT:Normocephalic, atraumatic Neck:supple, no JVD Lungs: bilateral rales, no wheeze Heart:S1 and S2 reg, no murmurs, rubs or gallop Abd:Soft, non tender, non distended, normal bowel sounds Ext:No edema. no clubbing, no cyanosis Neuro:Awake, alert, oriented X 3, moves all ext, No focal neurological signs - Constitutional Vitals: Temp Pulse Resp BP Pulse Ox 98.2 F 65 18 116/78 92 02/18/21 04:20 02/18/21 04:20 02/18/21 04:20 02/18/21 04:20 02/18/21 04:20 General appearance: Present: no acute distress HEART Score - HEART Score EKG: Non-specific Age: 45-65 Risk factors: 1-2 risk factors Troponin: Troponin T < 0.010 ng/mL (0.00-0.029) 02/15/21 04:44 Troponin: < normal limit Results - Labs CBC & Chem 7: 02/15/21 01:28 02/18/21 03:12 Labs: Laboratory Last Values WBC 2.7 K/mm3 (4.5-11.0) L 02/15/21 01:28 RBC 4.41 M/mm3 (3.65-5.03) 02/15/21 01:28 Hgb 15.0 gm/dl (11.8-15.2) 02/15/21 01:28 Hct 42.0 % (35.5-45.6) 02/15/21 01:28 MCV 95 fl (84-94) H 02/15/21 01:28 MCH 34 pg (28-32) H 02/15/21 01:28 MCHC 36 % (32-34) H 02/15/21 01:28 RDW 14.0 % (13.2-15.2) 02/15/21 01:28 Plt Count 182 K/mm3 (140-440) 02/15/21 01:28 [place] % (Auto) [employer] 02/15/21 01:28 Add Manual Diff Complete 02/15/21 01:28 Total Counted 100 02/15/21 01:28 Seg Neuts % (Manual) 65.0 % (40.0-70.0) 02/15/21 01:28 Band Neutrophils % 3.0 % 02/15/21 01:28 Lymphocytes % (Manual) 21.0 % (13.4-35.0) 02/15/21 01:28 Monocytes % (Manual) 11.0 % (0.0-7.3) H 02/15/21 01:28 Nucleated RBC % Not Reportable 02/15/21 01:28 Seg Neutrophils # Man 1.8 K/mm3 (1.8-7.7) 02/15/21 01:28 Band Neutrophils # 0.1 K/mm3 02/15/21 01:28 Lymphocytes # (Manual) 0.6 K/mm3 (1.2-5.4) L 02/15/21 01:28 Abs React Lymphs (Man) 0.0 K/mm3 02/15/21 01:28 Monocytes # (Manual) 0.3 K/mm3 (0.0-0.8) 02/15/21 01:28 Eosinophils # (Manual) 0.0 K/mm3 (0.0-0.4) 02/15/21 01:28 Basophils # (Manual) 0.0 K/mm3 (0.0-0.1) 02/15/21 01:28 Metamyelocytes # 0.0 K/mm3 02/15/21 01:28 Myelocytes # 0.0 K/mm3 02/15/21 01:28 Promyelocytes # 0.0 K/mm3 02/15/21 01:28 Blast Cells # 0.0 K/mm3 02/15/21 01:28 WBC Morphology Not Reportable 02/15/21 01:28 Hypersegmented Neuts Not Reportable 02/15/21 01:28 Hyposegmented Neuts Not Reportable 02/15/21 01:28 Hypogranular Neuts Not Reportable 02/15/21 01:28 Smudge Cells Not Reportable 02/15/21 01:28 Toxic Granulation Not Reportable 02/15/21 01:28 Toxic Vacuolation Not Reportable 02/15/21 01:28 Dohle Bodies Not Reportable 02/15/21 01:28 Pelger-Huet Anomaly Not Reportable 02/15/21 01:28 Becky Rods Not Reportable 02/15/21 01:28 Platelet Estimate Consistent w auto 02/15/21 01:28 Clumped Platelets Not Reportable 02/15/21 01:28 Plt Clumps, EDTA Not Reportable 02/15/21 01:28 Large Platelets Not Reportable 02/15/21 01:28 Giant Platelets Not Reportable 02/15/21 01:28 Platelet Satelliting Not Reportable 02/15/21 01:28 Plt Morphology Comment Not Reportable 02/15/21 01:28 RBC Morphology Not Reportable 02/15/21 01:28 Dimorphic RBCs Not Reportable 02/15/21 01:28 Polychromasia Not Reportable 02/15/21 01:28 Hypochromasia Not Reportable 02/15/21 01:28 Poikilocytosis Not Reportable 02/15/21 01:28 Anisocytosis 1+ 02/15/21 01:28 Microcytosis Not Reportable 02/15/21 01:28 Macrocytosis Not Reportable 02/15/21 01:28 Spherocytes Not Reportable 02/15/21 01:28 Pappenheimer Bodies Not Reportable 02/15/21 01:28 Sickle Cells Not Reportable 02/15/21 01:28 Target Cells Not Reportable 02/15/21 01:28 Tear Drop Cells Not Reportable 02/15/21 01:28 Ovalocytes Not Reportable 02/15/21 01:28 Helmet Cells Not Reportable 02/15/21 01:28 [place] Bodies Not Reportable 02/15/21 01:28 [place] Rings Not Reportable 02/15/21 01:28 [place] Cells Not Reportable 02/15/21 01:28 Bite Cells Not Reportable 02/15/21 01:28 Crenated Cell Not Reportable 02/15/21 01:28 Elliptocytes Not Reportable 02/15/21 01:28 Acanthocytes (Spur) Not Reportable 02/15/21 01:28 Rouleaux Not Reportable 02/15/21 01:28 Hemoglobin C Crystals Not Reportable 02/15/21 01:28 Schistocytes Not Reportable 02/15/21 01:28 Malaria parasites Not Reportable 02/15/21 01:28 [place]den Bodies Not Reportable 02/15/21 01:28 Hem Pathologist Commnt No 02/15/21 01:28 D-Dimer 284.26 ng/mlDDU (0-234) H 02/17/21 09:55 Sodium 133 mmol/L (137-145) L 02/18/21 03:12 Potassium 4.5 mmol/L (3.6-5.0) 02/18/21 03:12 Chloride 99.6 mmol/L (98-107) 02/18/21 03:12 Carbon Dioxide 26 mmol/L (22-30) 02/18/21 03:12 Anion Gap 12 mmol/L 02/18/21 03:12 BUN 16 mg/dL (9-20) 02/18/21 03:12 Creatinine 0.8 mg/dL (0.8-1.3) 02/18/21 03:12 Estimated GFR > 60 ml/min 02/18/21 03:12 BUN/Creatinine Ratio 20 % 02/18/21 03:12 Glucose 114 mg/dL (75-100) H 02/18/21 03:12 Lactic Acid 0.90 mmol/L (0.7-2.0) 02/15/21 04:44 Calcium 8.8 mg/dL (8.4-10.2) 02/18/21 03:12 Ferritin 229.5 ng/mL (30.0-300.0) 02/17/21 09:55 Total Bilirubin 0.20 mg/dL (0.1-1.2) 02/18/21 03:12 AST 23 units/L (5-40) 02/18/21 03:12 ALT 10 units/L (7-56) 02/18/21 03:12 Alkaline Phosphatase 52 units/L (35-129) 02/18/21 03:12 Lactate Dehydrogenase 318 units/L (91-180) H 02/17/21 09:55 Troponin T < 0.010 ng/mL (0.00-0.029) 02/15/21 04:44 C-Reactive Protein 0.70 mg/dL (0.00-1.30) 02/17/21 09:55 Total Protein 6.0 g/dL (6.3-8.2) L 02/18/21 03:12 Albumin 3.5 g/dL (3.9-5) L 02/18/21 03:12 Albumin/Globulin Ratio 1.4 % 02/18/21 03:12 TSH 1.890 mlU/mL (0.270-4.200) 02/15/21 04:44 Free T4 1.10 ng/dL (0.76-1.46) 02/15/21 04:44 Coronavirus (PCR) Positive (Negative) A 02/15/21 Unknown Microbiology: Microbiology 02/15/21 04:44 Peripheral/Venous Blood Culture - Preliminary NO GROWTH AFTER 72 HOURS 02/15/21 05:19 Peripheral/Venous Blood Culture - Preliminary NO GROWTH AFTER 72 HOURS Shannon/IV: Voiding Method Toilet Active Medications - Current Medications Current Medications: Generic Name Dose Route Start Last Admin Trade Name Freq PRN Reason Stop Dose Admin Acetaminophen 650 mg 02/15/21 15:00 02/17/21 18:55 Acetaminophen 325 Mg Tab PO 650 mg Q4H PRN Administration Pain MILD(1-3)/Fever >100.5/LEIGH Albuterol 2 puff 02/15/21 10:00 02/15/21 23:38 Albuterol 8.5 Gm Mdi Inhalation IH 1 1000units Q4HRT PRN Administration Shortness Of Breath Dexamethasone 6 mg 02/15/21 16:00 02/18/21 09:05 Dexamethasone 4 Mg Tab PO 02/24/21 10:01 6 mg Q24HR MELISSA Administration Docusate Sodium 100 mg 02/15/21 22:00 02/18/21 09:06 Docusate Sodium 100 Mg Cap PO Not Given BID MELISSA Famotidine 20 mg 02/15/21 22:00 02/18/21 09:06 Famotidine 20 Mg Tab PO Not Given BID MELISSA REMDESIVIR 100 mg/ Sodium 250 mls @ 500 mls/hr 02/17/21 21:00 02/17/21 21:39 Chloride IV 02/20/21 21:29 500 mls/hr Q24HR@2100 MELISSA Administration Sodium Chloride 1,000 mls @ 100 mls/hr 02/17/21 09:45 02/18/21 09:05 Nacl 0.9% 1000 Ml IV 100 mls/hr DIRECT MELISSA Administration Ondansetron HCl 4 mg 02/15/21 15:00 Ondansetron 4 Mg/2 Ml Inj IV Q8H PRN Nausea And Vomiting Sodium Chloride 10 ml 02/15/21 22:00 02/18/21 09:06 Sodium Chloride 0.9% 10 Ml Flush Syringe IV 10 ml BID MELISSA Administration Sodium Chloride 10 ml 02/15/21 15:00 Sodium Chloride 0.9% 10 Ml Flush Syringe IV PRN PRN LINE FLUSH Sodium Chloride 50 ml 02/16/21 18:00 02/17/21 21:39 Sodium Chloride 0.9% 50 Ml Ivpb IV 02/19/21 21:01 50 ml Q24HR@2100 MELISSA Administration
--- NOTE | 2021-02-18 11:58 | Consultation ---
History of Present Illness - Reason for Consult Consult date: 02/18/21 Reason for consult: History of Bipolar - Chief Complaint Chief complaint: syncope - History of Present Psychiatric Illness Per ED note: The patient is a 55-year-old male present with a chief complaint of syncope. The patient states he has had 3 syncopal episodes and one near syncopal episode for the past 3 days. Patient states his first episode occurred 02/13/2021 while walking to the bathroom he states he felt dizzy, had chest pain with palpitations and then woke up on the floor. Patient states the following d ay the same thing occurred while walking to the bathroom. The third episode occurred yesterday morning the patient states he had stepped up onto a bus and was about to pay when he felt dizzy and woke up on the ground surrounded by paramedics. It appears the patient came to the hospital had labs and x-ray performed the left before being evaluated by physician. Patient states last night he began to feel lightheaded so he sat down and the feeling resolved. Patient denies shortness of breath or cough. Patient denies history of fever. Patient denies nausea vomiting or diarrhea. Patient states he was not vaccinated against Covid. Patient states he is never had a cardiac catheterization Tai Hdez is a 55 year old male with a history of Bipolar who presents to the ED with Syncope. In my interview with the patient he was irritable, and guarded. The patient reports that he has had Bipolar all his life stating " why all these questions." He reports seeing his psychiatrist every three months and he is compliant with medications. He reports current medication as Depakote 1000mg daily and Prozac (unable to state bertha). He denies any current suicidal/ homicidal ideation and denies hallucinations. PAST PSYCHIATRIC HISTORY: Diagnoses: Bipolar Suicide attempts or Self-harm behavior:Yes Prior psychiatric hospitalizations: Yes Substance Abuse history: Denies Previous psychiatric medications tried:Depakote, Prozac Outpatient treatment:Yes PAST MEDICAL HISTORY: None reported or document Family Psychiatric History: None reported or documented SOCIAL HISTORY Marital Status: Single Living Arrangements: Lives alone Employment Status: unknown Access to guns/weapons: Denies Education:some 9th grade History of Abuse:Denies Legal History: Unknown REVIEW OF SYSTEMS Constitutional: Negative for weight loss ENT: Negative for stridor Respiratory: Negative for cough or hemoptysis All other systems reviewed and are negative MENTAL STATUS EXAMINATION General Appearance and Behavior: Age appropriate, good hygiene, wearing appropriate clothes. Cooperation: Cooperative Psychomotor Behavior: Psychomotor normal Mood:"ok" Affect and affective range: Congruent with stated mood Thought Process: Goal Directed Thought Content: Not Suicidal Speech: Normal volume, Regular rate and rhythm, Suicidal Ideation: Denies Homicidal Ideation: Denies Hallucinations: Denies Delusions:Denies Impulse Control: Unimpaired Insight and Judgment: Limited, fair judgment Memory: Normal Attention:Distractible Orientation: alert and oriented Assessment and Plan (1)Bipolar Disorder, unspecified- F31.9 Current Visit: Yes Status: Acute Start Depakote 500mg po BID Start Prozac 10mg po daily The patient to comply with previously prescribed medications Risks, benefits and alternatives of medications discussed with the patient, questions answered and consent obtained from patient. PSYCHOTHERAPY: Supportive psychotherapy provided MEDICAL: Per primary team DELIRIUM PRECAUTIONS: Please re-orient patient frequently, keep lights on during the day, and minimize benzodiazepines and opiates as these medications could worsen patient's confusion. [employer] DEVELOPER: Defer to primary DISPOSITION: Do not recommend acute inpatient psychiatric hospitalization at this time. The patient knows that if suicidal/homicidal ideation or any endangering thoughts arise to seek for emergent assistance including but not limited to crisis hot line and emergency room. Manager Professional Development will provide patient with recourses. FOLLOW-UP: Will sign off. Case staffed with Dr. Linton Thank you for the consult. Please contact with any questions and/or concerns. Medications and Allergies Allergies Allergy/AdvReac Type Severity Reaction Status Date / Time No Known Allergies Allergy Verified 02/14/21 09:17 Active Meds: Active Medications Acetaminophen (Acetaminophen 325 Mg Tab) 650 mg PO Q4H PRN PRN Reason: Pain MILD(1-3)/Fever >100.5/LEIGH Last Admin: 02/17/21 18:55 Dose: 650 mg Documented by: Albuterol (Albuterol 8.5 Gm Mdi Inhalation) 2 puff IH Q4HRT PRN PRN Reason: Shortness Of Breath Last Admin: 02/15/21 23:38 Dose: 1 1000units Documented by: Dexamethasone (Dexamethasone 4 Mg Tab) 6 mg PO Q24HR MELISSA Stop: 02/24/21 10:01 Last Admin: 02/18/21 09:05 Dose: 6 mg Documented by: Docusate Sodium (Docusate Sodium 100 Mg Cap) 100 mg PO BID [facility] Last Admin: 02/18/21 09:06 Dose: Not Given Documented by: Famotidine (Famotidine 20 Mg Tab) 20 mg PO BID [facility] Last Admin: 02/18/21 09:06 Dose: Not Given Documented by: REMDESIVIR 100 mg/ Sodium (Chloride) 250 mls @ 500 mls/hr IV Q24HR@2100 [facility] Stop: 02/20/21 21:29 Last Admin: 02/17/21 21:39 Dose: 500 mls/hr Documented by: Sodium Chloride (Nacl 0.9% 1000 Ml) 1,000 mls @ 100 mls/hr IV DIRECT [facility] Last Admin: 02/18/21 09:05 Dose: 100 mls/hr Documented by: Ondansetron HCl (Ondansetron 4 Mg/2 Ml Inj) 4 mg IV Q8H PRN PRN Reason: Nausea And Vomiting Sodium Chloride (Sodium Chloride 0.9% 10 Ml Flush Syringe) 10 ml IV BID [facility] Last Admin: 02/18/21 09:06 Dose: 10 ml Documented by: Sodium Chloride (Sodium Chloride 0.9% 10 Ml Flush Syringe) 10 ml IV PRN PRN PRN Reason: LINE FLUSH Sodium Chloride (Sodium Chloride 0.9% 50 Ml Ivpb) 50 ml IV Q24HR@2100 [facility] Stop: 02/19/21 21:01 Last Admin: 02/17/21 21:39 Dose: 50 ml Documented by: Mental Status Exam - Vital signs Last Vital Signs Temp 98.2 F 02/18/21 04:20 Pulse 65 02/18/21 04:20 Resp 18 02/18/21 04:20 BP 116/78 02/18/21 04:20 Pulse Ox 92 02/18/21 04:20 Results Result Diagrams: 02/15/21 01:28 02/18/21 03:12 Abnormal lab results 02/18/21 Range/Units 03:12 Sodium 133 L (137-145) mmol/L Glucose 114 H (75-100) mg/dL Total Protein 6.0 L (6.3-8.2) g/dL Albumin 3.5 L (3.9-5) g/dL All other labs normal.
--- NOTE | 2021-02-18 12:08 | Progress Note ---
Assessment and Plan Cultures: SARS CoV2 PCR: Positive 02/15/2021 blood culture: No growth A/P: 55-year-old male with hypertension, bipolar disorder admitted with syncope: #COVID-19 pneumonia #Leukopenia #Syncope: Cardiology following Recs: complete IV/PO Dexamethasone 6 mg daily x 10 days IV remdesivir x 5 days max while inpatient ambulatory sats prior to discharge ID will sign off. Please call with questions. Christy Marrero MD, FACP [facility] ([facility]) O: [phone] F: [phone] Subjective Date of service: 02/18/21 Interval history: Febrile yesterday evening. No fever today. Borderline hypoxia. Objective - Exam Narrative Exam: Physical Exam (reviewed in chart to minimize risk of transmission) Constitutional: deferred Head, Ears, Nose: deferred Eyes: deferred Neck: deferred Oral: deferred Cardiovascular: deferred Respiratory: deferred GI: deferred Musculoskeletal: deferred Skin: deferred Hem/Lymphatic: deferred Psych: deferred Neurological: deferred - Constitutional Vitals: Vital Signs Temp Pulse Resp BP Pulse Ox 98.2 F 65 18 116/78 92 02/18/21 04:20 02/18/21 04:20 02/18/21 04:20 02/18/21 04:20 02/18/21 04:20 Temperature -Last 24 Hours Temperature 98.2 F Temperature 98.7 F Temperature 102.5 F - Labs CBC & Chem 7: 02/15/21 01:28 02/18/21 03:12 Labs: Abnormal lab results 02/18/21 Range/Units 03:12 Sodium 133 L (137-145) mmol/L Glucose 114 H (75-100) mg/dL Total Protein 6.0 L (6.3-8.2) g/dL Albumin 3.5 L (3.9-5) g/dL
[2021-02-18] MEDS ORDERED: DIVALPROEX DR 500 MG TAB PO SCH (13:00)
[2021-02-18] MEDS: FLUoxetine 10 MG TAB PO SCH (13:11)
[2021-02-18] MEDS ORDERED: DIVALPROEX DR 500 MG TAB PO ONE (17:00)
[2021-02-18] MEDS: SODIUM CHLORIDE 0.9% 50 ML IVPB IV SCH (21:00)
[2021-02-18] MEDS: REMDESIVIR 100 MG in SODIUM CHLORIDE 0.9% 250ML 250 ML IV SCH (21:00)
[2021-02-18] MEDS: DIVALPROEX DR 500 MG TAB PO SCH (22:00)
[2021-02-19 08:10] LABS: Alanine Aminotransferase 10 units/L (7-56); Albumin 3.2 g/dL (3.9-5); Blood Urea Nitrogen 11 mg/dL (9-20); Calcium 8.7 mg/dL (8.4-10.2); Hemolysis Index 6
[2021-02-19 08:12] LABS: BUN/Creatinine Ratio 16
[2021-02-19] MEDS ORDERED: DIVALPROEX DR 500 MG TAB PO SCH (10:00)
--- NOTE | 2021-02-19 10:30 | Progress Note ---
Assessment and Plan Assessment and plan: -Recurrent syncope -Likely vasovagal, CT head without any acute process -Continue to follow clinically, frequent neuro eval -Pending orthostatic vitals --COVID PNA -Patient tested positive for COVID-19 virus -CXR shows patchy parenchymal disease which represent pulmonary edema or atypical pneumonia -S/p dexamethasone, azithromycin and Rocephin in the ED -Placed on dexamethasone for total 10 days and remdesivir total 5 days -No need for antibiotic as procalcitonin level is normal -Infectious disease consulted, appreciate recommendations -Droplet/contact isolation -Continue SPO2 monitoring -Supplemental oxygen as needed -Pulmonary hygiene -Prone to sleep -Vitamin C, vitamin D, zinc -Anticoagulation per protocol -Lasix IV as needed to prevent pulmonary edema --Acute hypoxic respiratory failure -Due to COVID-19 pneumonia, continue Covid protocol, supplemental O2 to keep O2 sat 94% --Bipolar disorder, continue home medicine --Orthostatic hypotension, gentle iv fluid --HTN, follow BP, hydralazine iv as needed --DVT Px, lovenox Daily clinical course: 02/16/21: Continue supplemental O2, follow inflammatory markers, continue Dex and remdesivir. Monitor blood glucose and SSI as needed. Check for orthostatic vitals, follow 2D echo. 02/17/21: Patient resting on room air but noted to be significantly orthostatic. Start on gentle IV fluid hydration. Continue to follow orthostatic vitals. Order PT eval, possible discharge when vital is stable 02/18/21 Patient with Covid-19 pneumonia. He presented with syncope. Has orthostatic hypotension. Fever 102.5 yesterday. Started on Remdesivir yesterday 02/1702/19/21 Patient with Covid-19 pneumonia, who initially presented with syncope. No fever x 24 hrs but had fever 2 days ago. On Remdesevir History Interval history: No fever for 24 hrs Syncope Hospitalist Physical - Physical exam Narrative exam: Gen:Not in acute distress, lying in bed, HEENT:Normocephalic, atraumatic Neck:supple, no JVD Lungs: bilateral rales, no wheeze Heart:S1 and S2 reg, no murmurs, rubs or gallop Abd:Soft, non tender, non distended, normal bowel sounds Ext:No edema. no clubbing, no cyanosis Neuro:Awake, alert, oriented X 3, moves all ext, No focal neurological signs - Constitutional Vitals: Temp Pulse Resp BP Pulse Ox 98.3 F 59 L 20 138/79 95 02/19/21 04:57 02/19/21 04:57 02/19/21 04:57 02/19/21 04:57 02/19/21 04:57 General appearance: Present: no acute distress HEART Score - HEART Score EKG: Non-specific Age: 45-65 Risk factors: 1-2 risk factors Troponin: Troponin T < 0.010 ng/mL (0.00-0.029) 02/15/21 04:44 Troponin: < normal limit Results - Labs CBC & Chem 7: 02/15/21 01:28 02/19/21 07:00 Labs: Laboratory Last Values WBC 2.7 K/mm3 (4.5-11.0) L 02/15/21 01:28 RBC 4.41 M/mm3 (3.65-5.03) 02/15/21 01:28 Hgb 15.0 gm/dl (11.8-15.2) 02/15/21 01:28 Hct 42.0 % (35.5-45.6) 02/15/21 01:28 MCV 95 fl (84-94) H 02/15/21 01:28 MCH 34 pg (28-32) H 02/15/21 01:28 MCHC 36 % (32-34) H 02/15/21 01:28 RDW 14.0 % (13.2-15.2) 02/15/21 01:28 Plt Count 182 K/mm3 (140-440) 02/15/21 01:28 [place] % (Auto) Floral Artist 02/15/21 01:28 Add Manual Diff Complete 02/15/21 01:28 Total Counted 100 02/15/21 01:28 Seg Neuts % (Manual) 65.0 % (40.0-70.0) 02/15/21 01:28 Band Neutrophils % 3.0 % 02/15/21 01:28 Lymphocytes % (Manual) 21.0 % (13.4-35.0) 02/15/21 01:28 Monocytes % (Manual) 11.0 % (0.0-7.3) H 02/15/21 01:28 Nucleated RBC % Not Reportable 02/15/21 01:28 Seg Neutrophils # Man 1.8 K/mm3 (1.8-7.7) 02/15/21 01:28 Band Neutrophils # 0.1 K/mm3 02/15/21 01:28 Lymphocytes # (Manual) 0.6 K/mm3 (1.2-5.4) L 02/15/21 01:28 Abs React Lymphs (Man) 0.0 K/mm3 02/15/21 01:28 Monocytes # (Manual) 0.3 K/mm3 (0.0-0.8) 02/15/21 01:28 Eosinophils # (Manual) 0.0 K/mm3 (0.0-0.4) 02/15/21 01:28 Basophils # (Manual) 0.0 K/mm3 (0.0-0.1) 02/15/21 01:28 Metamyelocytes # 0.0 K/mm3 02/15/21 01:28 Myelocytes # 0.0 K/mm3 02/15/21 01:28 Promyelocytes # 0.0 K/mm3 02/15/21 01:28 Blast Cells # 0.0 K/mm3 02/15/21 01:28 WBC Morphology Not Reportable 02/15/21 01:28 Hypersegmented Neuts Not Reportable 02/15/21 01:28 Hyposegmented Neuts Not Reportable 02/15/21 01:28 Hypogranular Neuts Not Reportable 02/15/21 01:28 Smudge Cells Not Reportable 02/15/21 01:28 Toxic Granulation Not Reportable 02/15/21 01:28 Toxic Vacuolation Not Reportable 02/15/21 01:28 Dohle Bodies Not Reportable 02/15/21 01:28 Pelger-Huet Anomaly Not Reportable 02/15/21 01:28 Becky Rods Not Reportable 02/15/21 01:28 Platelet Estimate Consistent w auto 02/15/21 01:28 Clumped Platelets Not Reportable 02/15/21 01:28 Plt Clumps, EDTA Not Reportable 02/15/21 01:28 Large Platelets Not Reportable 02/15/21 01:28 Giant Platelets Not Reportable 02/15/21 01:28 Platelet Satelliting Not Reportable 02/15/21 01:28 Plt Morphology Comment Not Reportable 02/15/21 01:28 RBC Morphology Not Reportable 02/15/21 01:28 Dimorphic RBCs Not Reportable 02/15/21 01:28 Polychromasia Not Reportable 02/15/21 01:28 Hypochromasia Not Reportable 02/15/21 01:28 Poikilocytosis Not Reportable 02/15/21 01:28 Anisocytosis 1+ 02/15/21 01:28 Microcytosis Not Reportable 02/15/21 01:28 Macrocytosis Not Reportable 02/15/21 01:28 Spherocytes Not Reportable 02/15/21 01:28 Pappenheimer Bodies Not Reportable 02/15/21 01:28 Sickle Cells Not Reportable 02/15/21 01:28 Target Cells Not Reportable 02/15/21 01:28 Tear Drop Cells Not Reportable 02/15/21 01:28 Ovalocytes Not Reportable 02/15/21 01:28 Helmet Cells Not Reportable 02/15/21 01:28 Howard-Flippin Bodies Not Reportable 02/15/21 01:28 Bethel Rings Not Reportable 02/15/21 01:28 Felipe Cells Not Reportable 02/15/21 01:28 Bite Cells Not Reportable 02/15/21 01:28 Crenated Cell Not Reportable 02/15/21 01:28 Elliptocytes Not Reportable 02/15/21 01:28 Acanthocytes (Spur) Not Reportable 02/15/21 01:28 Rouleaux Not Reportable 02/15/21 01:28 Hemoglobin C Crystals Not Reportable 02/15/21 01:28 Schistocytes Not Reportable 02/15/21 01:28 Malaria parasites Not Reportable 02/15/21 01:28 Jayden Bodies Not Reportable 02/15/21 01:28 Hem Pathologist Commnt No 02/15/21 01:28 D-Dimer 284.26 ng/mlDDU (0-234) H 02/17/21 09:55 Sodium 139 mmol/L (137-145) 02/19/21 07:00 Potassium 4.5 mmol/L (3.6-5.0) 02/19/21 07:00 Chloride 103.9 mmol/L (98-107) 02/19/21 07:00 Carbon Dioxide 28 mmol/L (22-30) 02/19/21 07:00 Anion Gap 12 mmol/L 02/19/21 07:00 BUN 11 mg/dL (9-20) 02/19/21 07:00 Creatinine 0.7 mg/dL (0.8-1.3) L 02/19/21 07:00 Estimated GFR > 60 ml/min 02/19/21 07:00 BUN/Creatinine Ratio 16 % 02/19/21 07:00 Glucose 86 mg/dL (75-100) 02/19/21 07:00 Lactic Acid 0.90 mmol/L (0.7-2.0) 02/15/21 04:44 Calcium 8.7 mg/dL (8.4-10.2) 02/19/21 07:00 Ferritin 229.5 ng/mL (30.0-300.0) 02/17/21 09:55 Total Bilirubin 0.20 mg/dL (0.1-1.2) 02/19/21 07:00 AST 21 units/L (5-40) 02/19/21 07:00 ALT 10 units/L (7-56) 02/19/21 07:00 Alkaline Phosphatase 48 units/L (35-129) 02/19/21 07:00 Lactate Dehydrogenase 318 units/L (91-180) H 02/17/21 09:55 Troponin T < 0.010 ng/mL (0.00-0.029) 02/15/21 04:44 C-Reactive Protein 0.70 mg/dL (0.00-1.30) 02/17/21 09:55 Total Protein 5.5 g/dL (6.3-8.2) L 02/19/21 07:00 Albumin 3.2 g/dL (3.9-5) L 02/19/21 07:00 Albumin/Globulin Ratio 1.4 % 02/19/21 07:00 TSH 1.890 mlU/mL (0.270-4.200) 02/15/21 04:44 Free T4 1.10 ng/dL (0.76-1.46) 02/15/21 04:44 Coronavirus (PCR) Positive (Negative) A 02/15/21 Unknown Microbiology: Microbiology 02/15/21 05:19 Peripheral/Venous Blood Culture - Preliminary NO GROWTH AFTER 4 DAYS 02/15/21 04:44 Peripheral/Venous Blood Culture - Preliminary NO GROWTH AFTER 4 DAYS Shannon/IV: Voiding Method Toilet Active Medications - Current Medications Current Medications: Generic Name Dose Route Start Last Admin Trade Name Freq PRN Reason Stop Dose Admin Acetaminophen 650 mg 02/15/21 15:00 02/17/21 18:55 Acetaminophen 325 Mg Tab PO 650 mg Q4H PRN Administration Pain MILD(1-3)/Fever >100.5/LEIGH Albuterol 2 puff 02/15/21 10:00 02/15/21 23:38 Albuterol 8.5 Gm Mdi Inhalation IH 1 1000units Q4HRT PRN Administration Shortness Of Breath Dexamethasone 6 mg 02/15/21 16:00 02/18/21 09:05 Dexamethasone 4 Mg Tab PO 02/24/21 10:01 6 mg Q24HR MELISSA Administration Divalproex Sodium 1,000 mg 02/18/21 22:00 02/18/21 22:[address] 500 Mg Tab PO Not Given BID MELISSA Docusate Sodium 100 mg 02/15/21 22:00 02/18/21 22:00 Docusate Sodium 100 Mg Cap PO 100 mg BID MELISSA Administration Famotidine 20 mg 02/15/21 22:00 02/18/21 22:00 Famotidine 20 Mg Tab PO 20 mg BID MELISSA Administration Fluoxetine HCl 10 mg 02/18/21 13:00 02/18/21 13:11 Fluoxetine 10 Mg Tab PO 10 mg QDAY MELISSA Administration REMDESIVIR 100 mg/ Sodium 250 mls @ 500 mls/hr 02/17/21 21:00 02/18/21 21:00 Chloride IV 02/20/21 21:29 500 mls/hr Q24HR@2100 MELISSA Administration Sodium Chloride 1,000 mls @ 100 mls/hr 02/17/21 09:45 02/18/21 09:05 Nacl 0.9% 1000 Ml IV 100 mls/hr DIRECT MELISSA Administration Ondansetron HCl 4 mg 02/15/21 15:00 Ondansetron 4 Mg/2 Ml Inj IV Q8H PRN Nausea And Vomiting Sodium Chloride 10 ml 02/15/21 22:00 02/18/21 22:00 Sodium Chloride 0.9% 10 Ml Flush Syringe IV 10 ml BID MELISSA Administration Sodium Chloride 10 ml 02/15/21 15:00 Sodium Chloride 0.9% 10 Ml Flush Syringe IV PRN PRN LINE FLUSH Sodium Chloride 50 ml 02/16/21 18:00 02/18/21 21:00 Sodium Chloride 0.9% 50 Ml Ivpb IV 02/19/21 21:01 50 ml Q24HR@2100 MELISSA Administration
[2021-02-19] MEDS: DIVALPROEX DR 500 MG TAB PO SCH ×3 (11:26→22:05)
[2021-02-19] MEDS: FLUoxetine 10 MG TAB PO SCH (13:26)
[2021-02-19] MEDS: DEXAMETHASONE 4 MG TAB PO SCH (13:27)
[2021-02-19] MEDS: FAMOTIDINE 20 MG TAB PO SCH ×3 (13:29→22:10)
[2021-02-19] MEDS: DOCUSATE SODIUM 100 MG CAP PO SCH ×3 (13:29→22:10)
[2021-02-19] MEDS: REMDESIVIR 100 MG in SODIUM CHLORIDE 0.9% 250ML 250 ML IV SCH (21:58)
[2021-02-19] MEDS: SODIUM CHLORIDE 0.9% 1000 ML 1,000 ML IV SCH (21:59)
[2021-02-19] MEDS: SODIUM CHLORIDE 0.9% 50 ML IVPB IV SCH (21:59)
[2021-02-20] MEDS: DEXAMETHASONE 4 MG TAB PO SCH (09:19)
[2021-02-20] MEDS: FAMOTIDINE 20 MG TAB PO SCH ×4 (09:20→21:43)
[2021-02-20] MEDS: DOCUSATE SODIUM 100 MG CAP PO SCH ×4 (09:20→21:43)
[2021-02-20] MEDS: FLUoxetine 10 MG TAB PO SCH (09:20)
[2021-02-20] MEDS: DIVALPROEX DR 500 MG TAB PO SCH ×2 (09:20→21:43)
--- NOTE | 2021-02-20 10:11 | Discharge Summary ---
Providers - Providers Date of Admission: 02/16/21 11:00 Date of discharge: 02/20/21 Attending physician: ILIANA GUTIERREZ 02/15/21 08:40 Consult to Physician [CONS] Routine Comment: Consulting Provider: JD ZAMORA Physician Instructions: Reason For Exam: syncope Physical Therapy Evaluation and Treat [CONS] Routine Comment: Reason For Exam: Debility 02/15/21 15:08 Consult to Physician [CONS] Routine Comment: Consulting Provider: SYED KLEIN Physician Instructions: Reason For Exam: covid positive 02/17/21 14:20 Consult to Mental Health [CONS] Routine Reason For Exam: bipolar Primary care physician: IESHA JACOBO MD Hospitalization Condition: Fair Disposition: 01 HOME / SELF CARE / HOMELESS Final Discharge Diagnosis (Prints w/discharge instructions): 1.Covid-19 pneumonia - Discharge Diagnoses (1) Syncope and collapse Status: Acute (2) COVID-19 Status: Acute (3) Acute respiratory failure Status: Acute Core Measure Documentation - Palliative Care Palliative Care/ Comfort Measures: Not Applicable - Core Measures Any of the following diagnoses?: none Exam - Constitutional Vitals: Temp Pulse Resp BP Pulse Ox 97.9 F 54 L 18 151/88 95 02/20/21 04:04 02/20/21 04:04 02/20/21 04:04 02/20/21 04:04 02/20/21 04:04 Plan Activity: advance as tolerated Diet: low fat, low cholesterol, low salt Plan of Treatment: 1.Follow up with PCP in 1 week 2.Continue isolation until 02/26/21 Follow up with: PRIMARY CARE, [Primary Care Provider] - 3-5 Days Prescriptions: dexAMETHasone [Decadron] 6 mg PO Q24HR 4 Days #6 tablet Famotidine [Pepcid] 20 mg PO BID #30 tablet
[2021-02-20] MEDS: REMDESIVIR 100 MG in SODIUM CHLORIDE 0.9% 250ML 250 ML IV SCH (21:41)
[2021-02-21] MEDS: DEXAMETHASONE 4 MG TAB PO SCH (09:13)
[2021-02-21] MEDS: DIVALPROEX DR 500 MG TAB PO SCH (09:14)
[2021-02-21] MEDS: FLUoxetine 10 MG TAB PO SCH (09:14)
[2021-02-21] MEDS: DOCUSATE SODIUM 100 MG CAP PO SCH (09:15)
[2021-02-21] MEDS: FAMOTIDINE 20 MG TAB PO SCH (09:16)
--- NOTE | 2021-02-21 09:53 | Progress Note ---
Assessment and Plan Assessment and plan: -Recurrent syncope -Likely vasovagal, CT head without any acute process -Continue to follow clinically, frequent neuro eval -Pending orthostatic vitals --COVID PNA -Patient tested positive for COVID-19 virus -CXR shows patchy parenchymal disease which represent pulmonary edema or atypical pneumonia -S/p dexamethasone, azithromycin and Rocephin in the ED -Placed on dexamethasone for total 10 days and remdesivir total 5 days -No need for antibiotic as procalcitonin level is normal -Infectious disease consulted, appreciate recommendations -Droplet/contact isolation -Continue SPO2 monitoring -Supplemental oxygen as needed -Pulmonary hygiene -Prone to sleep -Vitamin C, vitamin D, zinc -Anticoagulation per protocol -Lasix IV as needed to prevent pulmonary edema --Acute hypoxic respiratory failure -Due to COVID-19 pneumonia, continue Covid protocol, supplemental O2 to keep O2 sat 94% --Bipolar disorder, continue home medicine --Orthostatic hypotension, gentle iv fluid --HTN, follow BP, hydralazine iv as needed --DVT Px, lovenox Daily clinical course: 02/16/21: Continue supplemental O2, follow inflammatory markers, continue Dex and remdesivir. Monitor blood glucose and SSI as needed. Check for orthostatic vitals, follow 2D echo. 02/17/21: Patient resting on room air but noted to be significantly orthostatic. Start on gentle IV fluid hydration. Continue to follow orthostatic vitals. Order PT eval, possible discharge when vital is stable 02/18/21 Patient with Covid-19 pneumonia. He presented with syncope. Has orthostatic hypotension. Fever 102.5 yesterday. Started on Remdesivir yesterday 02/1702/19/21 Patient with Covid-19 pneumonia, who initially presented with syncope. No fever x 24 hrs but had fever 2 days ago. On Remdesevir 02/20/21 Patient with Covid-19 pneumonia. He was discharged home on Oxygen today but not accepted back at [facility] because he is on Oxygen. O2 sat was 87% on ambulation, in Nurse's note. - Patient Problems (1) Syncope and collapse Current Visit: Yes Status: Acute (2) COVID-19 Current Visit: Yes Status: Acute (3) Acute respiratory failure Current Visit: Yes Status: Acute History Interval history: Patient discharged but not accepted at [facility] because he is on Oxygen Hospitalist Physical - Physical exam Narrative exam: Gen:Not in acute distress, lying in bed, HEENT:Normocephalic, atraumatic Neck:supple, no JVD Lungs: bilateral rales, no wheeze Heart:S1 and S2 reg, no murmurs, rubs or gallop Abd:Soft, non tender, non distended, normal bowel sounds Ext:No edema. no clubbing, no cyanosis Neuro:Awake, alert, oriented X 3, moves all ext, No focal neurological signs - Constitutional Vitals: Temp Pulse Resp BP Pulse Ox 98.0 F 55 L 18 155/111 96 02/20/21 22:10 02/20/21 22:10 02/20/21 23:00 02/20/21 22:10 02/20/21 23:00 General appearance: Present: no acute distress HEART Score - HEART Score EKG: Non-specific Age: 45-65 Risk factors: 1-2 risk factors Troponin: Troponin T < 0.010 ng/mL (0.00-0.029) 02/15/21 04:44 Troponin: < normal limit Results - Labs CBC & Chem 7: 02/15/21 01:28 02/19/21 07:00 Labs: Laboratory Last Values WBC 2.7 K/mm3 (4.5-11.0) L 02/15/21 01:28 RBC 4.41 M/mm3 (3.65-5.03) 02/15/21 01:28 Hgb 15.0 gm/dl (11.8-15.2) 02/15/21 01:28 Hct 42.0 % (35.5-45.6) 02/15/21 01:28 MCV 95 fl (84-94) H 02/15/21 01:28 MCH 34 pg (28-32) H 02/15/21 01:28 MCHC 36 % (32-34) H 02/15/21 01:28 RDW 14.0 % (13.2-15.2) 02/15/21 01:28 Plt Count 182 K/mm3 (140-440) 02/15/21 01:28 Cavalier % (Auto) Back Shoe Operator 02/15/21 01:28 Add Manual Diff Complete 02/15/21 01:28 Total Counted 100 02/15/21 01:28 Seg Neuts % (Manual) 65.0 % (40.0-70.0) 02/15/21 01:28 Band Neutrophils % 3.0 % 02/15/21 01:28 Lymphocytes % (Manual) 21.0 % (13.4-35.0) 02/15/21 01:28 Monocytes % (Manual) 11.0 % (0.0-7.3) H 02/15/21 01:28 Nucleated RBC % Not Reportable 02/15/21 01:28 Seg Neutrophils # Man 1.8 K/mm3 (1.8-7.7) 02/15/21 01:28 Band Neutrophils # 0.1 K/mm3 02/15/21 01:28 Lymphocytes # (Manual) 0.6 K/mm3 (1.2-5.4) L 02/15/21 01:28 Abs React Lymphs (Man) 0.0 K/mm3 02/15/21 01:28 Monocytes # (Manual) 0.3 K/mm3 (0.0-0.8) 02/15/21 01:28 Eosinophils # (Manual) 0.0 K/mm3 (0.0-0.4) 02/15/21 01:28 Basophils # (Manual) 0.0 K/mm3 (0.0-0.1) 02/15/21 01:28 Metamyelocytes # 0.0 K/mm3 02/15/21 01:28 Myelocytes # 0.0 K/mm3 02/15/21 01:28 Promyelocytes # 0.0 K/mm3 02/15/21 01:28 Blast Cells # 0.0 K/mm3 02/15/21 01:28 WBC Morphology Not Reportable 02/15/21 01:28 Hypersegmented Neuts Not Reportable 02/15/21 01:28 Hyposegmented Neuts Not Reportable 02/15/21 01:28 Hypogranular Neuts Not Reportable 02/15/21 01:28 Smudge Cells Not Reportable 02/15/21 01:28 Toxic Granulation Not Reportable 02/15/21 01:28 Toxic Vacuolation Not Reportable 02/15/21 01:28 Dohle Bodies Not Reportable 02/15/21 01:28 Pelger-Huet Anomaly Not Reportable 02/15/21 01:28 Becky Rods Not Reportable 02/15/21 01:28 Platelet Estimate Consistent w auto 02/15/21 01:28 Clumped Platelets Not Reportable 02/15/21 01:28 Plt Clumps, EDTA Not Reportable 02/15/21 01:28 Large Platelets Not Reportable 02/15/21 01:28 Giant Platelets Not Reportable 02/15/21 01:28 Platelet Satelliting Not Reportable 02/15/21 01:28 Plt Morphology Comment Not Reportable 02/15/21 01:28 RBC Morphology Not Reportable 02/15/21 01:28 Dimorphic RBCs Not Reportable 02/15/21 01:28 Polychromasia Not Reportable 02/15/21 01:28 Hypochromasia Not Reportable 02/15/21 01:28 Poikilocytosis Not Reportable 02/15/21 01:28 Anisocytosis 1+ 02/15/21 01:28 Microcytosis Not Reportable 02/15/21 01:28 Macrocytosis Not Reportable 02/15/21 01:28 Spherocytes Not Reportable 02/15/21 01:28 Pappenheimer Bodies Not Reportable 02/15/21 01:28 Sickle Cells Not Reportable 02/15/21 01:28 Target Cells Not Reportable 02/15/21 01:28 Tear Drop Cells Not Reportable 02/15/21 01:28 Ovalocytes Not Reportable 02/15/21 01:28 Helmet Cells Not Reportable 02/15/21 01:28 [place] Bodies Not Reportable 02/15/21 01:28 [place] Rings Not Reportable 02/15/21 01:28 [place] Cells Not Reportable 02/15/21 01:28 Bite Cells Not Reportable 02/15/21 01:28 Crenated Cell Not Reportable 02/15/21 01:28 Elliptocytes Not Reportable 02/15/21 01:28 Acanthocytes (Spur) Not Reportable 02/15/21 01:28 Rouleaux Not Reportable 02/15/21 01:28 Hemoglobin C Crystals Not Reportable 02/15/21 01:28 Schistocytes Not Reportable 02/15/21 01:28 Malaria parasites Not Reportable 02/15/21 01:28 Jayden Bodies Not Reportable 02/15/21 01:28 Hem Pathologist Commnt No 02/15/21 01:28 D-Dimer 284.26 ng/mlDDU (0-234) H 02/17/21 09:55 Sodium 139 mmol/L (137-145) 02/19/21 07:00 Potassium 4.5 mmol/L (3.6-5.0) 02/19/21 07:00 Chloride 103.9 mmol/L (98-107) 02/19/21 07:00 Carbon Dioxide 28 mmol/L (22-30) 02/19/21 07:00 Anion Gap 12 mmol/L 02/19/21 07:00 BUN 11 mg/dL (9-20) 02/19/21 07:00 Creatinine 0.7 mg/dL (0.8-1.3) L 02/19/21 07:00 Estimated GFR > 60 ml/min 02/19/21 07:00 BUN/Creatinine Ratio 16 % 02/19/21 07:00 Glucose 86 mg/dL (75-100) 02/19/21 07:00 Lactic Acid 0.90 mmol/L (0.7-2.0) 02/15/21 04:44 Calcium 8.7 mg/dL (8.4-10.2) 02/19/21 07:00 Ferritin 229.5 ng/mL (30.0-300.0) 02/17/21 09:55 Total Bilirubin 0.20 mg/dL (0.1-1.2) 02/19/21 07:00 AST 21 units/L (5-40) 02/19/21 07:00 ALT 10 units/L (7-56) 02/19/21 07:00 Alkaline Phosphatase 48 units/L (35-129) 02/19/21 07:00 Lactate Dehydrogenase 318 units/L (91-180) H 02/17/21 09:55 Troponin T < 0.010 ng/mL (0.00-0.029) 02/15/21 04:44 C-Reactive Protein 0.70 mg/dL (0.00-1.30) 02/17/21 09:55 Total Protein 5.5 g/dL (6.3-8.2) L 02/19/21 07:00 Albumin 3.2 g/dL (3.9-5) L 02/19/21 07:00 Albumin/Globulin Ratio 1.4 % 02/19/21 07:00 Procalcitonin 0.05 ng/mL (<0.15) 02/17/21 09:55 TSH 1.890 mlU/mL (0.270-4.200) 02/15/21 04:44 Free T4 1.10 ng/dL (0.76-1.46) 02/15/21 04:44 Coronavirus (PCR) Positive (Negative) A 02/15/21 Unknown Microbiology: Microbiology 02/15/21 05:19 Peripheral/Venous Blood Culture - Final NO GROWTH AFTER 5 DAYS 02/15/21 04:44 Peripheral/Venous Blood Culture - Final NO GROWTH AFTER 5 DAYS Shannon/IV: Voiding Method Toilet Active Medications - Current Medications Current Medications: Generic Name Dose Route Start Last Admin Trade Name Freq PRN Reason Stop Dose Admin Acetaminophen 650 mg 02/15/21 15:00 02/17/21 18:55 Acetaminophen 325 Mg Tab PO 650 mg Q4H PRN Administration Pain MILD(1-3)/Fever >100.5/LEIGH Albuterol 2 puff 02/15/21 10:00 02/15/21 23:38 Albuterol 8.5 Gm Mdi Inhalation IH 1 1000units Q4HRT PRN Administration Shortness Of Breath Dexamethasone 6 mg 02/15/21 16:00 02/21/21 09:13 Dexamethasone 4 Mg Tab PO 02/24/21 10:01 6 mg Q24HR MELISSA Administration Divalproex Sodium 1,000 mg 02/18/21 22:00 02/21/21 09:[address] 500 Mg Tab PO 1,000 mg BID MELISSA Administration Docusate Sodium 100 mg 02/15/21 22:00 02/21/21 09:15 Docusate Sodium 100 Mg Cap PO Not Given BID MELISSA Famotidine 20 mg 02/15/21 22:00 02/21/21 09:16 Famotidine 20 Mg Tab PO Not Given BID MELISSA Fluoxetine HCl 10 mg 02/18/21 13:00 02/21/21 09:14 Fluoxetine 10 Mg Tab PO 10 mg QDAY MELISSA Administration Sodium Chloride 1,000 mls @ 100 mls/hr 02/17/21 09:45 02/19/21 21:59 Nacl 0.9% 1000 Ml IV 100 mls/hr DIRECT MELISSA Administration Ondansetron HCl 4 mg 02/15/21 15:00 Ondansetron 4 Mg/2 Ml Inj IV Q8H PRN Nausea And Vomiting Sodium Chloride 10 ml 02/15/21 22:00 02/21/21 09:16 Sodium Chloride 0.9% 10 Ml Flush Syringe IV 10 ml BID MELISSA Administration Sodium Chloride 10 ml 02/15/21 15:00 Sodium Chloride 0.9% 10 Ml Flush Syringe IV PRN PRN LINE FLUSH
[2021-02-21] MEDS ORDERED: ENOXAPARIN 40 MG/0.4 ML INJ SUB-Q SCH (14:00)
[2021-02-21 18:28] VITALS: BP 81/50
== END 2021-02-21 18:45 | disposition home or self-care (01) | DRG 177 ==
LOC: ED 00:09 → 4A 08:10 → OBSVTOIN 02-16 11:00 → 3A 02-16 13:37
PROVIDERS: ADMIT Internal Medicine; ATTEND Internal Medicine
PROC: XW033E5 Introduction of Remdesivir Anti-infective into Peripheral Vein, Percutaneous Approach, New Technology Group 5 (ICD-10-PCS; principal; 2021-02-17)
DX: U07.1 COVID-19 (principal); J96.01 Acute respiratory failure with hypoxia; J12.82 Pneumonia due to coronavirus disease 2019; I10 Essential (primary) hypertension; F17.210 Nicotine dependence, cigarettes, uncomplicated; F31.9 Bipolar disorder, unspecified; I95.1 Orthostatic hypotension; Z60.2 Problems related to living alone; Z79.899 Other long term (current) drug therapy
CPT/HCPCS: 36415; 70450; 71045; 71275; 80053; 82140; 82728; 83615; 84145; 84439; 84443; 84484; 85007; 85025; 85379; 86140; 87040; 93005; 93880; 94640; 99406; G0378; J0456; J0696; J1650; J7030; J7050; J8540; Q0162; Q9967; U0003

== ENCOUNTER 2021-02-22 13:03 | Emergency (ER) | payer SELFPAY ==
[2021-02-22 14:08] VITALS: BP 113/86
[2021-02-22] MEDS ORDERED: ASPIRIN 325 MG TAB PO ONE (14:09)
--- NOTE | 2021-02-22 14:52 | XRay Report ---
CHEST 2 VIEWS INDICATION / CLINICAL INFORMATION: SOB. COMPARISON: 02/18/2021 FINDINGS: SUPPORT DEVICES: None. HEART / MEDIASTINUM: No significant abnormality. LUNGS / PLEURA: No significant pulmonary or pleural abnormality. No pneumothorax. ADDITIONAL FINDINGS: No significant additional findings. IMPRESSION: 1. No acute findings. Signer Name: Saroj Willoughby MD Signed: 02/22/2021 2:47 PM Workstation Name: [id number]
[2021-02-22 15:14] LABS: Basophils % (Auto) 0.5 % (0.0-1.8); Eosinophils # (Auto) 0.2 K/mm3 (0.0-0.4); Eosinophils % (Auto) 1.9 % (0.0-4.3); Hematocrit 41.3 % (35.5-45.6); Lymphocytes # (Auto) 1.5 K/mm3 (1.2-5.4); Lymphocytes % (Auto) 19.3 % (13.4-35.0); Mean Corpuscular HGB Conc 34 % (32-34); Mean Corpuscular Volume 96 fl (84-94); Monocytes # (Auto) 1.1 K/mm3 (0.0-0.8); Monocytes % (Auto) 14.2 % (0.0-7.3); Platelet Count 342 K/mm3 (140-440); Red Cell Distribution Width 14.1 % (13.2-15.2)
[2021-02-22 15:32] LABS: Alanine Aminotransferase 12 units/L (7-56); Albumin 3.7 g/dL (3.9-5); BUN/Creatinine Ratio 24; Blood Urea Nitrogen 26 mg/dL (9-20); Calcium 9.6 mg/dL (8.4-10.2); Hemolysis Index 7
--- NOTE | 2021-02-22 16:54 | Event Note ---
ED Screening Note ED Screening Note: lightheaded that began a week ago was recently admitted and tested positive for COVID 19 and had P[address] on [address] no PE +SOB + intermittent +chills/sweats PMHx bipolar no allergies to meds +smoker This initial assessment/diagnostic orders/clinical plan/treatment(s) is/are subject to change based on patients health status, clinical progression and re- assessment by fellow clinical providers in the ED. Further treatment and workup at subsequent clinical providers discretion. Patient/guardian urged not to elope from the ED as their condition may be serious if not clinically assessed and managed. Initial orders include: CP protocol pt needs second troponin
--- NOTE | 2021-02-23 09:45 | Electrocardiograph Report ---
[facility] Test Date: 2021-02-22 Test Time: 14:17:32 Pat Name: NELL AVILA Department: Room: Gender: M Operating Room Manager: RODOLFO : 1965 Requested By: ED DOC Order Number: [id number] Reading MD: Moise Fiore Measurements Intervals [place] Rate: 83 P: 59 WA: 132 QRS: 75 QRSD: 94 T: 86 QT: 383 QTc: 450 Interpretive Statements Sinus rhythm Nonspecific STTW abnormalities Compared to ECG 02/15/2021 05:25:41 T-wave abnormality now present Electronically Signed On 02-23-2021 9:45:12 EDT by Moise Fiore
== END 2021-02-22 22:00 | disposition left against medical advice (07) ==
LOC: ED 13:03
DX: U07.1 COVID-19 (principal); Z53.21 Procedure and treatment not carried out due to patient leaving prior to being seen by health care provider
CPT/HCPCS: 36415; 71046; 80053; 84484; 85025; 93005

== ENCOUNTER 2021-11-10 09:12 | Emergency (ER) | payer SELFPAY ==
--- NOTE | 2021-11-10 11:03 | Emergency Department Report ---
ED N/V/D HPI - General Chief complaint: Nausea/Vomiting/Diarrhea Stated complaint: DIARRHEA Time Seen by Provider: 11/10/21 10:31 Source: patient Mode of arrival: Ambulatory Limitations: No Limitations - History of Present Illness Initial comments: 56 year-old -[place]ian male presents to the emergency room complaining diarrhea since Monday. Patient states that he had [employer]aco Parker on Monday night and not sure if that could have been the cause of it. Patient states yesterday he had about 4-5 stools. Patient reports that he took milk of magnesia which did not help with his diarrhea. Patient states his last loose stool was 6 AM this morning. He complains of lower abdominal pain. He denies any fever no chills no nausea no vomiting. Denies any past medical history. MD complaint: diarrhea, abdominal pain Description of Diarrhea: water Associated Abdominal Pain: Yes Location: LLQ Pain Scale: 3 Quality: cramping Consistency: intermittent Improves with: none Worsens with: none Associated Symptoms: loss of appetite. denies: cough, diaphoresis, fever/chills, nausea/vomiting - Related Data Home Medications Medication Instructions Recorded Confirmed Last Taken Divalproex [Bridget Neville] 1,000 mg PO DAILY 02/18/21 02/20/21 Unknown Previous Rx's Medication Instructions Recorded Last Taken Type Famotidine [Pepcid] 20 mg PO BID #30 tablet 02/20/21 Unknown Rx dexAMETHasone [Decadron] 6 mg PO Q24HR 4 Days #6 tablet 02/20/21 Unknown Rx Ciprofloxacin HCl 500 mg PO Q12H 5 Days #10 11/10/21 Unknown Rx metroNIDAZOLE [Flagyl] 500 mg PO Q12HR 7 Days #14 tab 11/10/21 Unknown Rx Allergies Allergy/AdvReac Type Severity Reaction Status Date / Time No Known Allergies Allergy Verified 02/22/21 14:08 ED Review of Systems ROS: Stated complaint: DIARRHEA Other details as noted in HPI Comment: All other systems reviewed and negative ED Past Medical Hx - Past Medical History Hx Hypertension: Yes Hx Congestive Heart Failure: No Hx Diabetes: No Hx Psychiatric Treatment: Yes (Bipolar) Hx Asthma: No Hx COPD: No - Surgical History Additional Surgical History: Wrist,trach - Social History Smoking Status: Heavy Tobacco Smoker - Medications Home Medications: Home Medications Medication Instructions Recorded Confirmed Last Taken Type Divalproex [Bridget Neville] 1,000 mg PO DAILY 02/18/21 02/20/21 Unknown History Famotidine [Pepcid] 20 mg PO BID #30 tablet 02/20/21 Unknown Rx dexAMETHasone [Decadron] 6 mg PO Q24HR 4 Days #6 tablet 02/20/21 Unknown Rx Ciprofloxacin HCl 500 mg PO Q12H 5 Days #10 11/10/21 Unknown Rx metroNIDAZOLE [Flagyl] 500 mg PO Q12HR 7 Days #14 tab 11/10/21 Unknown Rx ED Physical Exam - General Limitations: No Limitations General appearance: alert, in no apparent distress - Head Head exam: Present: atraumatic, normocephalic - Eye Eye exam: Present: normal appearance - ENT ENT exam: Present: mucous membranes moist - Neck Neck exam: Present: full ROM - Respiratory Respiratory exam: Present: normal lung sounds bilaterally. Absent: respiratory distress, wheezes, chest wall tenderness - Cardiovascular Cardiovascular Exam: Present: regular rate - GI/Abdominal GI/Abdominal exam: Present: soft, tenderness (Left lower quadrant), normal bowel sounds. Absent: distended - Extremities Exam Extremities exam: Present: normal inspection, full ROM - Back Exam Back exam: Present: normal inspection, full ROM - Neurological Exam Neurological exam: Present: alert, oriented X3, normal gait - Psychiatric Psychiatric exam: Present: normal affect, normal mood - Skin Skin exam: Present: warm, dry, intact, normal color. Absent: rash ED Course Vital Signs 11/10/21 09:18 Temperature 97.3 F L Pulse Rate 79 Respiratory 18 Rate Blood Pressure 156/101 [Right] O2 Sat by Pulse 97 Oximetry - Reevaluation(s) Reevaluation #1: 11/10/21 13:36 Spoke to jessy Elizabeth regarding specimens that has not been received in lab. He reports that he thought the lab was canceled. Labs were not canceled have been waiting for over an hour for labs so were able to have a CT abdomen and pelvic performed. ED Medical Decision Making - Lab Data Result diagrams: 11/10/21 Unknown 11/10/21 Unknown - Radiology Data Radiology results: report reviewed [facility] [address] [place] [address] Cat Scan Report Signed Patient: NELL AVILA MR#: [id number] : 1965 Acct:[id number] Age/Sex: 56 / M ADM Date: 11/10/21 Loc: ED Attending Dr: Ordering Physician: MARYSOL HANDLEY Date of Service: 11/10/21 Procedure(s): CT abdomen pelvis w con Accession Number(s): [id number] cc: MARYSOL HANDLEY CT ABDOMEN AND PELVIS WITH CONTRAST HISTORY: diarrhea and lower abd pain COMPARISON: None. TECHNIQUE: Axial CT images were obtained through the abdomen and pelvis after 100 cc of Omnipaque 300 IV contrast. Sagittal and coronal reformatted images. All CT scans at this location are performed using CT dose reduction for ALARA by means of automated exposure control. FINDINGS: CT ABDOMEN: Lung Bases: Clear. Liver: No significant abnormality. Biliary: No significant abnormality. Spleen: No significant abnormality. Unenlarged. Pancreas: No significant abnormality. Adrenals: No significant abnormality. Kidneys: No significant abnormality. Lymphatics: No lymphadenopathy. Vasculature: No significant abnormality. Bowel/Peritoneum: Mid and distal small bowel loops and proximal colon are fluid-filled but nondilated. This may represent a mild nonspecific enteritis. The remaining bowel loops are unremarkable. There is no evidence for obstruction or focal inflammation. The appendix is normal. No evidence for ascites, free air or fluid collection. CT PELVIS: : No significant abnormality. Osseous Structures: No significant abnormality. Additional Findings: None IMPRESSION: Findings suggests mild nonspecific enteritis. Otherwise unremarkable exam. Signer Name: John Downs Jr, MD Signed: 11/10/2021 3:37 PM Workstation Name: [id number] Transcribed By: TTR Dictated By: JOHN DOWNS JR, MD Electronically Authenticated By: JOHN DOWNS JR, MD Signed Date/Time: 11/10/211536 DD/ 31 TD/TT: - Medical Decision Making 56 year-old -[place]vian male presents to the emergency room complaining diarrhea since Monday. Patient states that he had T[employer] Parker on Monday night and not sure if that could have been the cause of it. Patient states yesterday he had about 4-5 stools. Patient reports that he took milk of magnesia which did not help with his diarrhea. Patient states his last loose stool was 6 AM this morning. He complains of lower abdominal pain. He denies any fever no chills no nausea no vomiting. Denies any past medical history. CBC CMP lipase IV normal saline CT with contrast has been ordered. Concern for diverticulitis patient's had diarrhea left lower quadrant abdominal pain. Critical care attestation.: If time is entered above; I have spent that time in minutes in the direct care of this critically ill patient, excluding procedure time. ED Disposition Clinical Impression: Enteritis Disposition: HOME / SELF CARE / HOMELESS Is pt being admited?: No Does the pt Need Aspirin: No Condition: Stable Additional Instructions: CT scan shows enteritis with just inflammation of your colon secondary to bacteria. Recommend to complete the antibiotics that I have prescribed. Increase your fluid intake. Tylenol as needed for pain management. Follow-up with your primary care provider and I have referred you to a security researcher. Prescriptions: Ciprofloxacin HCl 500 mg PO Q12H 5 Days #10 metroNIDAZOLE [Flagyl] 500 mg PO Q12HR 7 Days #14 tab Referrals: DANG DAIGLE MD [Primary Care Provider] - 3-5 Days [facility] [Provider Group] - 3-5 Days Forms: Work/School Release Form(ED) Time of Disposition: 16:13
[2021-11-10] MEDS ORDERED: SODIUM CHLORIDE 0.9% 1000 ML 1,000 ML IV ONE (11:04)
[2021-11-10 13:54] LABS: Hematocrit 42.6 % (35.5-45.6); Hemoglobin 14.2 gm/dl (11.8-15.2); Mean Corpuscular HGB Conc 33 % (32-34); Mean Corpuscular Volume 95 fl (84-94); Platelet Count 184 K/mm3 (140-440); Red Blood Count 4.49 M/mm3 (3.65-5.03); Red Cell Distribution Width 14.4 % (13.2-15.2)
[2021-11-10 14:11] LABS: Alanine Aminotransferase 19 units/L (7-56); Albumin 4.1 g/dL (3.9-5); BUN/Creatinine Ratio 19; Blood Urea Nitrogen 19 mg/dL (9-20); Calcium 9.1 mg/dL (8.4-10.2); Hemolysis Index 6
--- NOTE | 2021-11-10 15:41 | Cat Scan Report ---
CT ABDOMEN AND PELVIS WITH CONTRAST HISTORY: diarrhea and lower abd pain COMPARISON: None. TECHNIQUE: Axial CT images were obtained through the abdomen and pelvis after 100 cc of Omnipaque 300 IV contrast. Sagittal and coronal reformatted images. All CT scans at this location are performed us ing CT dose reduction for ALARA by means of automated exposure control. FINDINGS: CT ABDOMEN: Lung Bases: Clear. Liver: No significant abnormality. Biliary: No significant abnormality. Spleen: No significant abnormality. Unenlarged. Pancreas: No significant abnormality. Adrenals: No significant abnormality. Kidneys: No significant abnormality. Lymphatics: No lymphadenopathy. Vasculature: No significant abnormality. Bowel/Peritoneum: Mid and distal small bowel loops and proximal colon are fluid-filled but nondilated . This may represent a mild nonspecific enteritis. The remaining bowel loops are unremarkable. There is no evidence for obstruction or focal inflammation. The appendix is normal. No evidence for ascites , free air or fluid collection. CT PELVIS: : No significant abnormality. Osseous Structures: No significant abnormality. Additional Findings: None IMPRESSION: Findings suggests mild nonspecific enteritis. Otherwise unremarkable exam. Signer Name: John Downs Jr, MD Signed: 11/10/2021 3:37 PM Workstation Name: [id number]
[2021-11-10 16:43] VITALS: BP 125/85
== END 2021-11-10 16:41 | disposition home or self-care (01) ==
LOC: ED 09:12
DX: K52.9 Noninfective gastroenteritis and colitis, unspecified (principal); I10 Essential (primary) hypertension; F17.200 Nicotine dependence, unspecified, uncomplicated
CPT/HCPCS: 36415; 74177; 80053; 83690; 85027; 96360; 96361; 99284; Q9967